=== PATIENT | female | born 1955 | race Caucasian/White ===

== ENCOUNTER → 2017-03-30 | Outpatient (CLI) | payer MEDICARE, BC ==
--- NOTE | 2017-03-30 17:42 | CT ---
EXAMINATION TYPE: CT abdomen pelvis wo con DATE OF EXAM: 03/30/2017 COMPARISON: NONE HISTORY: Hematuria CT DLP: 2383.3 mGycm Automated exposure control for dose reduction was used. TECHNIQUE: Helical acquisition of images was performed from the lung bases through the pelvis. FINDINGS: Lung bases are clear. There is no pleural effusion. Liver shows no focal defect. Bile ducts are not dilated. There are clips from cholecystectomy. Spleen and pancreas appear normal. There is no adrenal mass. Kidneys have normal size and contour. There is no hydronephrosis. There is no retroperitoneal adenopathy. There is no ascites. I see no intestinal wall thickening. There are no dilated loops. Abdominal aorta is atheromatous. There is metal artifact from bilateral hip prosthesi s. There is no free fluid. There is no sign of free air. There are spondylotic changes in the lumbar spine. IMPRESSION: NO EVIDENCE OF RENAL STONE OR OBSTRUCTION. NO SIGN OF ACUTE ABDOMEN AND PELVIS. NO SIGN OF APPENDICIT IS.
== END | disposition home or self-care (01) ==
LOC: RADCTMAIN 16:11
PROVIDERS: ATTEND Internal Medicine Geriatric Medicine
DX: R31.9 Hematuria, unspecified (principal)
CPT/HCPCS: 74176

== ENCOUNTER → 2017-04-27 | Outpatient (CLI) | payer MEDICARE, BC ==
--- NOTE | 2017-04-28 14:18 | MM ---
Reason for exam: screening (asymptomatic). Last mammogram was performed 1 year and 8 months ago. History: Patient is postmenopausal. Family history of premenopausal breast cancer in sister at age 42. Benign US left CoreBiopsy of the left breast, September 20, 2008. Benign US right guided VAD of the right breast, September 20, 2008. Took estrogen for 3 years beginning at age 46. Physical Findings: A clinical breast exam by your physician is recommended on an annual basis and results should be correlated with mammographic findings. MG 3D Screening Mammo W/Cad Bilateral CC and MLO view(s) were taken. Prior study comparison: August 28, 2015, bilateral MG 3d screening mammo w/cad. January 16, 2014, bilateral MG diagnostic mammo w CAD NAGI. The breast tissue is almost entirely fat. Previous mammotome biopsy in the left breast. No significant changes when compared with prior studies. ASSESSMENT: Negative, BI-RAD 1 RECOMMENDATION: Routine screening mammogram of both breasts in 1 year.
== END | disposition home or self-care (01) ==
LOC: RADMAMWWP 16:09
PROVIDERS: ATTEND Internal Medicine Geriatric Medicine
DX: Z12.31 Encounter for screening mammogram for malignant neoplasm of breast (principal)
CPT/HCPCS: 77063; 77067

== ENCOUNTER → 2017-07-15 | Outpatient (CLI) | payer MEDICARE, BC ==
--- NOTE | 2017-07-15 13:24 | CT ---
CT CHEST FOR PULMONARY EMBOLISM. EXAMINATION TYPE: CT angio chest DATE OF EXAM: 07/15/2017 INDICATION: Shortness of breath CT DLP: 1125.2 mGycm, Automated exposure control for dose reduction was used. CONTRAST: Patient injected with 80 mL of Isovue 370. COMPARISON: NONE TECHNIQUE: CT of the chest is performed on a spiral scan at 2 mm thick sections. Study is performed with intravenous contrast timed for evaluation for pulmonary embolism. This will limit additional po rtions of the evaluation. 3-D MIP images reconstructed by the technologist are reviewed on the compu ter in the coronal and sagittal planes. FINDINGS: No persistent filling defects are evident to suggest an acute pulmonary embolism. No mediastinal or hilar adenopathy enlarged by CT criteria is evident. The ascending aorta diameter at the level of the main pulmonary artery is 3.3 cm. The main pulmonary artery diameter at the bifur cation is 2.4 cm. There is a calcified granuloma in the posterior right lung base adjacent to the diaphragm. Limited CT section through the upper abdomen are unremarkable. IMPRESSIONS: 1. No acute pulmonary embolism.
== END | disposition home or self-care (01) ==
LOC: RADCTMAIN 11:24
PROVIDERS: ATTEND Internal Medicine Hematology & Oncology
DX: R06.02 Shortness of breath (principal)
CPT/HCPCS: 82565; 84520; 71275; Q9967

== ENCOUNTER 2017-08-07 18:22 | Inpatient (IN) | payer MEDICARE, BC ==
[2017-08-07] MEDS ORDERED: SODIUM CHLORIDE 0.9% 500 ML IV STA ×2 (18:43→20:28)
--- NOTE | 2017-08-07 18:51 | ED ---
General Adult HPI - General Chief complaint: Shortness of Breath Stated complaint: SOB Time Seen by Provider: 08/07/17 18:25 Source: patient, EMS, RN notes reviewed, old records reviewed Mode of arrival: EMS Limitations: no limitations - History of Present Illness Initial comments: 62-year-old female presenting with worsening dyspnea. Patient has history of bladder cancer, she is currently on chemotherapy, most recent treatment was 3 days prior. Her symptoms have been progressive over the past one month. She did receive an outpatient computed tomography scan which was negative for pulmonary embolism. Symptoms have continued to worsen, they were quite severe today. Patient reports exertional dyspnea, palpitations and tachycardia. She also reports near syncopal episode. Denies significant cough or fever. She has had some chest tightness, which is nonradiating, substernal. No abdominal pain nausea or vomiting. - Related Data Home Medications Medication Instructions Recorded Confirmed Amitriptyline HCl [Elavil] 100 mg PO HS 07/17/15 07/17/15 Aspirin EC [Ecotrin] 325 mg PO DAILY 07/17/15 07/17/15 Atorvastatin Calcium [Lipitor] 40 mg PO HS 07/17/15 07/17/15 Cyclobenzaprine [Flexeril] 10 mg PO TID 07/17/15 07/17/15 Diazepam [Valium] 10 mg PO HS 07/17/15 07/17/15 Ibuprofen [Advil] 600 mg PO HS 07/17/15 07/17/15 Insulin Glargine [Lantus] 25 unit SQ HS 07/17/15 07/17/15 Liraglutide [Victoza 3-Vaibhav] 1.8 mg SQ DAILY 07/17/15 07/17/15 Allergies Allergy/AdvReac Type Severity Reaction Status Date / Time adhesive tape Allergy Rash/Hives Verified 07/15/17 11:45 Review of Systems ROS Statement: Those systems with pertinent positive or pertinent negative responses have been documented in the HPI. ROS Other: All systems not noted in ROS Statement are negative. Past Medical History Past Medical History: Cancer, Chest Pain / Angina, CVA/TIA, Diabetes Mellitus, Deep Vein Thrombosis (DVT), Hyperlipidemia, Thyroid Disorder Additional Past Medical History / Comment(s): BACK PAIN, Bladder Cancer Stage II History of Any Multi-Drug Resistant Organisms: MRSA Date of last positivie culture/infection: 2009 MDRO Source:: BACK Additional Past Surgical History / Comment(s): BACK SURGERY, THYROID SURGERY, NAGI HIP SURGERY, BOWEL SURGERY WITH COLOSTOMY AND REVERSAL Past Psychological History: No Psychological Hx Reported Smoking Status: Former smoker Past Alcohol Use History: None Reported Past Drug Use History: None Reported General Exam Limitations: no limitations General appearance: alert, in no apparent distress Head exam: Present: atraumatic, normocephalic Eye exam: Present: normal appearance, PERRL, EOMI ENT exam: Present: normal exam Neck exam: Present: normal inspection. Absent: tenderness, meningismus Respiratory exam: Present: normal lung sounds bilaterally. Absent: respiratory distress, rhonchi Cardiovascular Exam: Present: normal rhythm, tachycardia GI/Abdominal exam: Present: soft. Absent: distended, tenderness, guarding Extremities exam: Present: normal inspection, normal capillary refill. Absent: pedal edema, calf tenderness Neurological exam: Present: alert, oriented X3, CN II-XII intact. Absent: motor sensory deficit Psychiatric exam: Present: normal affect, normal mood Skin exam: Present: warm, dry, intact. Absent: cyanosis, diaphoretic Course Vital Signs 08/07/17 08/07/17 08/07/17 18:24 19:03 20:27 Temperature 98.2 F 98.1 F Pulse Rate 130 H 117 H 114 H Respiratory 25 H 18 20 Rate Blood Pressure 141/64 120/59 89/51 O2 Sat by Pulse 93 L 98 98 Oximetry 08/07/17 08/07/17 20:47 21:26 Temperature Pulse Rate 110 H 100 Respiratory 16 20 Rate Blood Pressure 102/53 103/69 O2 Sat by Pulse 99 98 Oximetry EKG Findings - EKG Comments: EKG Findings:: EKG: Sinus tachycardia, rate of 128, MD interval 144, QRS duration 82, QTC 452, no ST segment elevation or depression. Medical Decision Making - Medical Decision Making 62-year-old female currently on treatment for bladder cancer presenting with one month of worsening dyspnea. Patient's symptoms have significantly worsened over the past 24 hours. Shortness of breath this. Abdominal exertional. She also reports palpitations and tachycardia. EKG shows sinus tachycardia rate of 128. Chest x-rays obtained, this is negative for focal pneumonia or pneumothorax, there is some peribronchial cuffing consistent with bronchitis. Laboratory studies reveal significantly elevated white blood cell count have 40 , this may be related to recent dose of Neulasta. Hemoglobin is 8.1 which is down from previous periods symptoms may be related to anemia. Lactic acid 4.1, this is consistent with physical exam findings including tachycardia and signs of dehydration. She does receive IV hydration emergency department. She has worsening kidney function with creatinine 1.4. Hypomagnesemia at 1.0 which is replaced. Patient is currently on Lovenox for DVT, given her worsening kidney function, CT angiography is not obtained for PE, also patient did have CT angiography within the past month which was negative for PE. She will be continued on Lovenox and bilateral lower extremity ultrasound will be obtained for DVT. Patient's dyspnea is likely multifactorial, degree of reactive airway disease, and anemia. Patient will be admitted for further evaluation and treatment. Echo will be obtained, bilateral lower extremity ultrasound will be obtained, oncology and pulmonology placed on consult. - Lab Data Result diagrams: 08/07/17 18:33 08/07/17 18:33 Lab Results 08/07/17 08/07/17 08/07/17 Range/Units 18:33 18:33 18:33 WBC 40.8 H* (3.8-10.6) k/uL RBC 2.52 L (3.80-5.40) m/uL Hgb 8.1 L (11.4-16.0) gm/dL Hct 24.2 L (34.0-46.0) % MCV 96.0 (80.0-100.0) fL MCH 32.1 (25.0-35.0) pg MCHC 33.5 (31.0-37.0) g/dL RDW 15.6 H (11.5-15.5) % Plt Count 52 L (150-450) k/uL Neutrophils % (Manual) 92 % Band Neutrophils % 2 % Lymphocytes % (Manual) 6 % Monocytes % (Manual) 1 % Neutrophils # (Manual) 38.30 H (1.3-7.7) k/uL Lymphocytes # (Manual) 2.45 (1.0-4.8) k/uL Monocytes # (Manual) 0.41 (0-1.0) k/uL Nucleated RBCs 0 (0-0) /100 WBC Manual Slide Review Performed RBC Morphology Normal PT (9.0-12.0) sec INR (<1.2) APTT (22.0-30.0) sec Sodium 136 L (137-145) mmol/L Potassium 4.7 (3.5-5.1) mmol/L Chloride 102 (98-107) mmol/L Carbon Dioxide 20 L (22-30) mmol/L Anion Gap 14 mmol/L BUN 33 H (7-17) mg/dL Creatinine 1.40 H (0.52-1.04) mg/dL Est GFR (CKD-EPI)AfAm 46 (>60 ml/min/1.73 sqM) Est GFR (CKD-EPI)NonAf 40 (>60 ml/min/1.73 sqM) Glucose 273 H (74-99) mg/dL Plasma Lactic Acid Fabian (0.7-2.0) mmol/L Calcium 8.1 L (8.4-10.2) mg/dL Magnesium 1.0 L* (1.6-2.3) mg/dL Total Bilirubin 0.3 (0.2-1.3) mg/dL AST 22 (14-36) U/L ALT 37 (9-52) U/L Alkaline Phosphatase 130 H (38-126) U/L Total Creatine Kinase 61 (30-135) U/L CK-MB (CK-2) 0.8 (0.0-2.4) ng/mL CK-MB (CK-2) Rel Index 1.3 Troponin I 0.032 (0.000-0.034) ng/mL NT-Pro-B Natriuret Pep pg/mL Total Protein 5.9 L (6.3-8.2) g/dL Albumin 3.3 L (3.5-5.0) g/dL 08/07/17 08/07/17 08/07/17 Range/Units 18:33 18:33 18:33 WBC (3.8-10.6) k/uL RBC (3.80-5.40) m/uL Hgb (11.4-16.0) gm/dL Hct (34.0-46.0) % MCV (80.0-100.0) fL MCH (25.0-35.0) pg MCHC (31.0-37.0) g/dL RDW (11.5-15.5) % Plt Count (150-450) k/uL Neutrophils % (Manual) % Band Neutrophils % % Lymphocytes % (Manual) % Monocytes % (Manual) % Neutrophils # (Manual) (1.3-7.7) k/uL Lymphocytes # (Manual) (1.0-4.8) k/uL Monocytes # (Manual) (0-1.0) k/uL Nucleated RBCs (0-0) /100 WBC Manual Slide Review RBC Morphology PT 10.2 (9.0-12.0) sec INR 1.0 (<1.2) APTT 27.6 (22.0-30.0) sec Sodium (137-145) mmol/L Potassium (3.5-5.1) mmol/L Chloride (98-107) mmol/L Carbon Dioxide (22-30) mmol/L Anion Gap mmol/L BUN (7-17) mg/dL Creatinine (0.52-1.04) mg/dL Est GFR (CKD-EPI)AfAm (>60 ml/min/1.73 sqM) Est GFR (CKD-EPI)NonAf (>60 ml/min/1.73 sqM) Glucose (74-99) mg/dL Plasma Lactic Acid Fabian 4.2 H* (0.7-2.0) mmol/L Calcium (8.4-10.2) mg/dL Magnesium (1.6-2.3) mg/dL Total Bilirubin (0.2-1.3) mg/dL AST (14-36) U/L ALT (9-52) U/L Alkaline Phosphatase (38-126) U/L Total Creatine Kinase (30-135) U/L CK-MB (CK-2) (0.0-2.4) ng/mL CK-MB (CK-2) Rel Index Troponin I (0.000-0.034) ng/mL NT-Pro-B Natriuret Pep 96 pg/mL Total Protein (6.3-8.2) g/dL Albumin (3.5-5.0) g/dL Disposition Clinical Impression: Dyspnea, Hypomagnesemia, Dehydration, Lactic acidosis Disposition: ADMITTED IP TO THIS [facility] Condition: Serious Is patient prescribed a controlled substance at d/c from ED?: No Referrals: Deniz Lopez MD [Primary Care Provider] - 1-2 days Decision to Admit Reason: Admit from EC Decision Date: 08/07/17 Decision Time: 21:30
[2017-08-07 19:07] LABS: HCT 24.2 % (34.0-46.0); HGB 8.1 gm/dL (11.4-16.0); MCH 32.1 pg (25.0-35.0); MCHC 33.5 g/dL (31.0-37.0); Mean Platelet Volume 8.3; RBC 2.52 m/uL (3.80-5.40); RDW 15.6 % (11.5-15.5)
[2017-08-07 19:14] LABS: Platelet Count 52 k/uL (150-450); WBC 40.8 k/uL (3.8-10.6)
[2017-08-07 19:22] LABS: Band Neutrophils % 2 %; Lymphocytes # (M) 2.45 k/uL (1.0-4.8); Monocytes # (M) 0.41 k/uL (0-1.0); Neutrophils % (M) 92 %; Nucleated Red Blood Cells 0 /100 WBC (0-0); Total Cells Counted 200
[2017-08-07 19:32] LABS: Creatine Kinase MB 0.8 ng/mL (0.0-2.4); Troponin I 0.032 ng/mL (0.000-0.034)
[2017-08-07 19:33] LABS: Partial Thromboplastin Time 27.6 sec (22.0-30.0); Prothrombin Time 10.2 sec (9.0-12.0)
[2017-08-07] MEDS ORDERED: SODIUM CHLORIDE 0.9% 1,000 ML IV ONE (19:33)
[2017-08-07 19:42] LABS: Albumin 3.3 g/dL (3.5-5.0); Calcium 8.1 mg/dL (8.4-10.2); Potassium 4.7 mmol/L (3.5-5.1); Total Bilirubin 0.3 mg/dL (0.2-1.3); Total Protein 5.9 g/dL (6.3-8.2)
--- NOTE | 2017-08-07 20:06 | XR ---
EXAMINATION TYPE: XR chest 2V DATE OF EXAM: 08/07/2017 COMPARISON: 11/07/2014 HISTORY: 62-year-old female difficulty breathing TECHNIQUE: AP and lateral views FINDINGS: Heart upper limits of normal in size. Mild peribronchial cuffing centrally. Mild interstitial promine nce is similar. Aorta and pulmonary vasculature within normal limits. Right anterior chest wall injec tion port with catheter tip at the upper to mid SVC level. No consolidation or pleural effusion. IMPRESSION: Peribronchial cuffing could reflect bronchitis or asthma. Otherwise, no acute process seen.
[2017-08-07] MEDS: MAGNESIUM SULFATE-D5W PMX 1 GM in DEXTROSE/WATER 1 100ML.BAG IVPB SCH ×2 (20:11→21:24)
[2017-08-07] MEDS ORDERED: NALOXONE 0.4 MG/ML 1 ML VIAL IV PRN (22:06)
--- NOTE | 2017-08-07 22:24 | US ---
EXAMINATION TYPE: US venous doppler duplex LE BI DATE OF EXAM: 08/07/2017 8:43 PM COMPARISON: CLINICAL HISTORY: Pain. Patient states having a DVT behind right knee in May, imaged at [place]. On blood thinners. SIDE PERFORMED: Bilateral TECHNIQUE: The lower extremity deep venous system is examined utilizing real time linear array sonog jessica with graded compression, doppler sonography and color-flow sonography. VESSELS IMAGED: External Iliac Vein (EIV) Common Femoral Vein Deep Femoral Vein Greater Saphenous Vein * Femoral Vein Popliteal Vein Small Saphenous Vein * Proximal Calf Veins (* superficial vessels) Suboptimal visualization due to patient body habitus Right Leg: Negative for acute DVT Left Leg: Negative for acute DVT IMPRESSION: Exam shows no evidence of deep venous thrombosis.
[2017-08-07] MEDS ORDERED: CYCLOBENZAPRINE 10 MG TAB PO STA (22:36)
[2017-08-07] MEDS: ONDANSETRON 4 MG/2 ML VIAL IVP PRN (22:41)
[2017-08-07 23:09] LABS: Appearance,Urine Cloudy (Clear); Bilirubin,Urine Negative (Negative); Blood,Urine Small (Negative); Color,Urine Yellow; Glucose,Urine (UA) 2+ (Negative); Ketones,Urine Negative (Negative); Leukocyte Esterase,Urine Large (Negative); Nitrite,Urine Negative (Negative); Protein,Urine 1+ (Negative); Specific Gravity,Urine 1.016 (1.001-1.035); Urobilinogen,Urine <2.0 mg/dL (<2.0)
[2017-08-07 23:10] LABS: Bacteria,Urine Rare /hpf; Budding Yeast,Urine Many /hpf; Mucus,Urine Rare /hpf; RBC,Urine 11 /hpf (0-5); Squamous Epithelial Cell,Urine 1 /hpf (0-4); WBC,Urine 40 /hpf (0-5)
[2017-08-08] MEDS ORDERED: CYCLOBENZAPRINE 10 MG TAB PO SCH
[2017-08-08] MEDS: ENOXAPARIN 150 MG/ML SYRINGE SQ SCH ×2 (00:31→12:32)
[2017-08-08] MEDS: AMITRIPTYLINE HCL 50 MG TAB PO SCH ×2 (00:32→20:57)
[2017-08-08] MEDS: ATORVASTATIN 40 MG TAB PO SCH ×2 (00:32→20:57)
[2017-08-08] MEDS: DIAZEPAM 5 MG TAB PO SCH ×2 (00:32→22:23)
[2017-08-08] MEDS: INSULIN DETEMIR 100 UNIT/ML 10 ML VIAL SQ SCH ×2 (00:32→20:59)
[2017-08-08 00:53] LABS: Glucose,Whole Blood 178 mg/dL (75-99)
[2017-08-08] MEDS: HYDROmorphone 0.5 MG/0.5 ML SYRINGE IVP PRN ×2 (05:45→14:36)
[2017-08-08] MEDS: ONDANSETRON 4 MG/2 ML VIAL IVP PRN (05:51)
[2017-08-08 06:55] LABS: Glucose,Whole Blood 116 mg/dL (75-99)
[2017-08-08 07:42] LABS: MCH 31.4 pg (25.0-35.0); MCHC 32.4 g/dL (31.0-37.0); MCV 96.7 fL (80.0-100.0); Macrocytosis Slight; RBC 2.05 m/uL (3.80-5.40); RDW 15.9 % (11.5-15.5)
[2017-08-08 07:51] LABS: HGB 6.4 gm/dL (11.4-16.0); WBC 30.1 k/uL (3.8-10.6)
[2017-08-08 07:52] LABS: HCT 19.8 % (34.0-46.0); Platelet Count 38 k/uL (150-450)
[2017-08-08] MEDS: ALBUTEROL NEBULIZED 2.5 MG/3 ML INHALATION SCH ×4 (08:10→19:30)
[2017-08-08 08:12] LABS: Albumin 2.6 g/dL (3.5-5.0); Calcium 7.5 mg/dL (8.4-10.2); Magnesium 1.4 mg/dL (1.6-2.3); Potassium 4.7 mmol/L (3.5-5.1); Total Bilirubin 0.2 mg/dL (0.2-1.3)
[2017-08-08 08:17] LABS: Band Neutrophils % 1 %; Lymphocytes # (M) 3.01 k/uL (1.0-4.8); Neutrophils % (M) 86 %; Nucleated Red Blood Cells 0 /100 WBC (0-0); Polychromasia Present; Total Cells Counted 100; Toxic Granulation Present
[2017-08-08] MEDS ORDERED: ASPIRIN 325 MG TAB PO SCH (09:00)
[2017-08-08] MEDS: CYCLOBENZAPRINE 10 MG TAB PO SCH ×3 (09:25→22:23)
--- NOTE | 2017-08-08 10:10 | CONS ---
CONSULTATION Sharyn Rodríguez is a 62-year-old female who has a history of bladder cancer and chemotherapy. The most recent treatment 3 days prior. She has been complaining of increasing dyspnea for the last [address] of the chest as an outpatient and was negative for pulmonary embolism. Shortness of breath became worse and associated with palpitations and she reports being very dizzy and lightheaded. REVIEW OF SYSTEMS: No fever, chills, rigors or rigors. No cough or expectoration. No nausea, vomiting, or diarrhea. No hematuria or dysuria. No strokes, seizures. She did complain of some tightness in the chest. MEDICATIONS: Medications at home include amitriptyline, aspirin, atorvastatin, Flexeril, Valium, Lantus and Victoza. PAST MEDICAL HISTORY: Bladder cancer on chemotherapy, diabetes type 2, history of DVT. SOCIAL HISTORY: She was a smoker in the past. PHYSICAL EXAMINATION: On examination, she is lying flat in bed. She looks comfortable. There is no respiratory distress. Heart sounds S1, S2 are normal. No murmurs or gallops. No rub. Abdomen is soft. Vitals were evaluated. She is afebrile. Respiratory rate is about 18, blood pressure 100/62 mmHg. The ECG shows sinus tachycardia at 128 beats per minute. LABS: Labs are reviewed. The hemoglobin was 6.4. Magnesium was 1.0. NT proBNP is 96. IMPRESSION: Sinus tachycardia, likely post chemotherapy and related to dehydration. BUN is 33, creatinine is 1.4. SUGGEST: Management of anemia and dehydration post chemotherapy. This would address her sinus tachycardia. She is receiving 75 mL of fluid per hour at this time of normal saline. 2D echo and Doppler study to assess the pericardium. MMODL / IJN: [id number] /
[2017-08-08] MEDS ORDERED: DIAZEPAM 2 MG TAB PO PRN (10:42)
[2017-08-08 11:14] LABS: Glucose,Whole Blood 158 mg/dL (75-99)
--- NOTE | 2017-08-08 11:45 | P.HPIM ---
History of Present Illness H&P Date: 08/08/17 Chief Complaint: severe dyspnea This is a 62-year-old female one of Dr. Lopez with a previous medical history significant for stage II bladder cancer that was diagnosed back in May 2017 after she had a cystoscopy and ended up having tumor removal with Dr. Alvarado and she was sent to [facility] that time she was started on chemotherapy in the form of Gemzar and the cisplatin back then and the patient did have her last chemotherapy about 3 days ago and she did receive her Neulasta injection as well, patient has been having significant shortness of breath over the last the 2 weeks apparently she was seen by Dr. Lopez in the office last Wednesday and she was sent to see Dr. Andrews from cardiology for evaluation of her heart and she was checked okay and she was supposed to see tomorrow morning in the office for pulmonary evaluation, however the patient became quite short of breath yesterday and she ended up into a panic situation when she was extremity tachycardic and she was dyspneic ended up coming to the ER at [facility] with her daughter she was seen and evaluated in the ER and the patient to the was found to have a leukocytosis with a white count of 40, 000 along with anemia as well as thrombus cytopenia due to recent chemotherapy, and the patient was admitted to the hospital for evaluation she was a bit dehydrated she was given IV fluid in the form of normal saline and she was started on her medication hematology oncology consultation was obtained. Review of Systems Constitutional: Denies anorexia, Denies chronic headaches, Denies fever, Denies lethargy, Denies weakness, Denies weight gain, Denies weight loss Eyes: denies blurred vision Ears: deny: decreased hearing Ears, nose, mouth and throat: Denies dysphagia, Denies neck lump, Denies swelling in throat, Denies sore throat Cardiovascular: Reports decreased exercise tolerance, Reports dyspnea on exertion, Reports shortness of breath, Denies chest pain, Denies high blood pressure, Denies phlebitis, Denies rapid heart beat, Denies syncope Respiratory: Reports dyspnea, Reports sleep apnea, Denies congestion, Denies cough, Denies cough with sputum, Denies home oxygen, Denies snoring, Denies wheezing Gastrointestinal: Reports nausea, Denies abdominal pain, Denies bloating, Denies BRBPR, Denies heartburn, Denies melena, Denies vomiting Genitourinary: Denies dysuria Menstruation: Reports post hysterectomy, Reports postmenopausal Musculoskeletal: Denies myalgias Musculoskeletal: absent: ankle pain, ankle stiffness, ankle swelling, elbow pain , elbow stiffness, elbow swelling, foot pain, foot stiffness, foot swelling, hand pain, hand stiffness, hand swelling, hip pain, hip stiffness, hip swelling , knee pain, knee stiffness, knee swelling, shoulder pain, shoulder stiffness, shoulder swelling, wrist pain, wrist stiffness, wrist swelling Integumentary: Denies pruritus, Denies rash Neurological: Reports numbness, Denies weakness Psychiatric: Reports anxiety, Reports depression Endocrine: Denies fatigue, Denies weight change Past Medical History Past Medical History: Cancer, Chest Pain / Angina, CVA/TIA, Diabetes Mellitus, Deep Vein Thrombosis (DVT), GERD/Reflux, Hyperlipidemia, Osteoarthritis (OA), Thyroid Disorder Additional Past Medical History / Comment(s): BACK PAIN, Bladder Cancer Stage II History of Any Multi-Drug Resistant Organisms: MRSA Date of last positivie culture/infection: 2009 MDRO Source:: BACK Past Surgical History: Appendectomy, Bladder Surgery, Cholecystectomy, Hysterectomy, Joint Replacement (bilateral hip replacement) Additional Past Surgical History / Comment(s): BACK SURGERY, THYROID SURGERY, NAGI HIP SURGERY, BOWEL SURGERY WITH COLOSTOMY AND REVERSAL, history of perforated bowel status post expiratory laparotomy with partial colectomy and colostomy placement and reversal, bilateral cataract surgery, total abdominal instructed him bilateral sopping go for nephrectomy, bilateral total hip arthroplasty, thyroidectomy, cholecystectomy, Past Anesthesia/Blood Transfusion Reactions: No Reported Reaction Past Psychological History: No Psychological Hx Reported Smoking Status: Former smoker (patient used to smoke about a pack every day she smoked since she was 16 up till 2007 that she quit.) Past Alcohol Use History: None Reported Past Drug Use History: None Reported - Past Family History Mother Family Medical History: Coronary Artery Disease (CAD) (mother at age of 80 from diabetes and heart disease.), Diabetes Mellitus Additional Family Medical History / Comment(s): Heart issues Father Family Medical History: Diabetes Mellitus, Myocardial Infarction (MS) (father at age 70 from massive MS.) Additional Family Medical History / Comment(s): of heart disease Brother(s) Family Medical History: Coronary Artery Disease (CAD) (patient has 4 brothers 2 of them had CABG.) Sister(s) Family Medical History: Cancer (patient has 2 sisters one of them with breast cancer.) Son(s) Family Medical History: No Reported History (patient has 3 sons no major Problems) Daughter(s) Family Medical History: No Reported History (one daughter no major medical problems) Medications and Allergies Home Medications Medication Instructions Recorded Confirmed Type Amitriptyline HCl [Elavil] 100 mg PO HS 07/17/15 08/08/17 History Atorvastatin Calcium [Lipitor] 10 mg PO HS 07/17/15 08/08/17 History Cyclobenzaprine [Flexeril] 10 mg PO TID 07/17/15 08/08/17 History Diazepam [Valium] 10 mg PO HS 07/17/15 08/08/17 History Insulin Glargine [Lantus] 60 unit SQ HS 07/17/15 08/08/17 History Liraglutide [Victoza 3-Vaibhav] 1.8 mg SQ DAILY 07/17/15 08/08/17 History Diazepam [Valium] 2 mg PO TID PRN 08/07/17 08/08/17 History Enoxaparin [Lovenox] 150 mg SQ Q12H 08/07/17 08/08/17 History INSULIN LISPRO (humaLOG) [humaLOG] 10 units SQ TID 08/07/17 08/08/17 History Ondansetron HCl [Zofran] 1 tab PO Q6HR 08/07/17 08/08/17 History Prochlorperazine [Compazine] 1 tab PO Q6H 08/07/17 08/08/17 History Gabapentin [Neurontin] 400 mg PO TID 08/08/17 08/08/17 History Allergies Allergy/AdvReac Type Severity Reaction Status Date / Time adhesive tape Allergy Rash/Hives Verified 07/15/17 11:45 Physical Exam Vitals: Vital Signs Temp Pulse Pulse Pulse Resp BP BP 08/08/17 11:21 95 08/08/17 11:12 92 08/08/17 08:32 92 08/08/17 08:12 89 08/08/17 07:39 97.7 F 92 20 100/62 08/07/17 23:48 97.0 F L 120 H 16 140/60 08/07/17 22:15 98 F 104 H 20 104/56 08/07/17 21:26 100 20 103/69 08/07/17 20:47 110 H 16 102/53 08/07/17 20:27 98.1 F 114 H 20 89/51 08/07/17 19:03 117 H 18 120/59 08/07/17 18:24 98.2 F 130 H 25 H 141/64 Pulse Ox 08/08/17 11:21 08/08/17 11:12 08/08/17 08:32 08/08/17 08:12 98 08/08/17 07:39 100 08/07/17 23:48 98 08/07/17 22:15 96 08/07/17 21:26 98 08/07/17 20:47 99 08/07/17 20:27 98 08/07/17 19:03 98 08/07/17 18:24 93 L Intake and Output 08/07/17 08/08/17 08/08/17 22:59 06:59 14:59 Intake Total 1250 118 Balance 1250 118 Intake: Intake, IV Titration 750 Amount Sodium Chloride 0.9% 1, 750 000 ml @ 75 mls/hr IV . [id number] EDGAR Rx#:[id number] Oral 500 118 Other: # Voids 1 # Bowel Movements 1 Weight 130.635 kg - Constitutional General appearance: mild distress, obese - EENT Eyes: anicteric sclerae, EOMI, PERRLA, no ptosis, no scleral icterus, normal appearance ENT: hearing grossly normal, NA/AT, normal oropharynx, no thrush Ears: bilateral: normal - Neck Neck: no lymphadenopathy, normal ROM, no rigidity, no stridor Carotids: bilateral: upstroke delayed - Respiratory Respiratory: bilateral: diminished, negative: dullness, rales, rhonchi, wheezing , prolonged expiration - Cardiovascular Rhythm: regular Heart sounds: normal: S1, S2 Abnormal Heart Sounds: systolic murmur, no S3 Gallop - Gastrointestinal General gastrointestinal: normal bowel sounds, soft, no splenomegaly, no tenderness, no umbilical hernia, no ventral hernia - Integumentary Integumentary: normal, normal turgor - Neurologic Neurologic: CNII-XII intact - Musculoskeletal Musculoskeletal: generalized weakness, strength equal bilaterally - Psychiatric Psychiatric: A&O x's 3, appropriate affect, intact judgment & insight Results CBC & Chem 7: 08/08/17 07:18 08/08/17 07:18 Labs: Abnormal Lab Results - Last 24 Hours (Table) 08/07/17 08/07/17 08/07/17 Range/Units 18:33 18:33 18:33 WBC 40.8 H* (3.8-10.6) k/uL RBC 2.52 L (3.80-5.40) m/uL Hgb 8.1 L (11.4-16.0) gm/dL Hct 24.2 L (34.0-46.0) % RDW 15.6 H (11.5-15.5) % Plt Count 52 L (150-450) k/uL Neutrophils # (Manual) 38.30 H (1.3-7.7) k/uL Sodium 136 L (137-145) mmol/L Carbon Dioxide 20 L (22-30) mmol/L BUN 33 H (7-17) mg/dL Creatinine 1.40 H (0.52-1.04) mg/dL Glucose 273 H (74-99) mg/dL POC Glucose (mg/dL) (75-99) mg/dL Plasma Lactic Acid Fabian 4.2 H* (0.7-2.0) mmol/L Calcium 8.1 L (8.4-10.2) mg/dL Magnesium 1.0 L* (1.6-2.3) mg/dL Alkaline Phosphatase 130 H (38-126) U/L Total Protein 5.9 L (6.3-8.2) g/dL Albumin 3.3 L (3.5-5.0) g/dL Urine Appearance (Clear) Urine Protein (Negative) Urine Glucose (UA) (Negative) Urine Blood (Negative) Ur Leukocyte Esterase (Negative) Urine RBC (0-5) /hpf Urine WBC (0-5) /hpf Urine Bacteria (None) /hpf Urine Mucus (None) /hpf Urine Yeast (Budding) (None) /hpf Crossmatch 08/07/17 08/08/17 08/08/17 Range/Units 22:44 00:29 06:52 WBC (3.8-10.6) k/uL RBC (3.80-5.40) m/uL Hgb (11.4-16.0) gm/dL Hct (34.0-46.0) % RDW (11.5-15.5) % Plt Count (150-450) k/uL Neutrophils # (Manual) (1.3-7.7) k/uL Sodium (137-145) mmol/L Carbon Dioxide (22-30) mmol/L BUN (7-17) mg/dL Creatinine (0.52-1.04) mg/dL Glucose (74-99) mg/dL POC Glucose (mg/dL) 178 H 116 H (75-99) mg/dL Plasma Lactic Acid Fabian (0.7-2.0) mmol/L Calcium (8.4-10.2) mg/dL Magnesium (1.6-2.3) mg/dL Alkaline Phosphatase (38-126) U/L Total Protein (6.3-8.2) g/dL Albumin (3.5-5.0) g/dL Urine Appearance Cloudy H (Clear) Urine Protein 1+ H (Negative) Urine Glucose (UA) 2+ H (Negative) Urine Blood Small H (Negative) Ur Leukocyte Esterase Large H (Negative) Urine RBC 11 H (0-5) /hpf Urine WBC 40 H (0-5) /hpf Urine Bacteria Rare H (None) /hpf Urine Mucus Rare H (None) /hpf Urine Yeast (Budding) Many H (None) /hpf Crossmatch 08/08/17 08/08/17 08/08/17 Range/Units 07:18 07:18 07:18 WBC 30.1 H* (3.8-10.6) k/uL RBC 2.05 L (3.80-5.40) m/uL Hgb 6.4 L* D (11.4-16.0) gm/dL Hct 19.8 L* (34.0-46.0) % RDW 15.9 H (11.5-15.5) % Plt Count 38 L* (150-450) k/uL Neutrophils # (Manual) 26.10 H (1.3-7.7) k/uL Sodium (137-145) mmol/L Carbon Dioxide (22-30) mmol/L BUN 29 H (7-17) mg/dL Creatinine 1.20 H (0.52-1.04) mg/dL Glucose 111 H (74-99) mg/dL POC Glucose (mg/dL) (75-99) mg/dL Plasma Lactic Acid Fabian (0.7-2.0) mmol/L Calcium 7.5 L (8.4-10.2) mg/dL Magnesium 1.4 L (1.6-2.3) mg/dL Alkaline Phosphatase (38-126) U/L Total Protein 5.0 L (6.3-8.2) g/dL Albumin 2.6 L (3.5-5.0) g/dL Urine Appearance (Clear) Urine Protein (Negative) Urine Glucose (UA) (Negative) Urine Blood (Negative) Ur Leukocyte Esterase (Negative) Urine RBC (0-5) /hpf Urine WBC (0-5) /hpf Urine Bacteria (None) /hpf Urine Mucus (None) /hpf Urine Yeast (Budding) (None) /hpf Crossmatch See Detail 08/08/17 Range/Units 11:13 WBC (3.8-10.6) k/uL RBC (3.80-5.40) m/uL Hgb (11.4-16.0) gm/dL Hct (34.0-46.0) % RDW (11.5-15.5) % Plt Count (150-450) k/uL Neutrophils # (Manual) (1.3-7.7) k/uL Sodium (137-145) mmol/L Carbon Dioxide (22-30) mmol/L BUN (7-17) mg/dL Creatinine (0.52-1.04) mg/dL Glucose (74-99) mg/dL POC Glucose (mg/dL) 158 H (75-99) mg/dL Plasma Lactic Acid Fabian (0.7-2.0) mmol/L Calcium (8.4-10.2) mg/dL Magnesium (1.6-2.3) mg/dL Alkaline Phosphatase (38-126) U/L Total Protein (6.3-8.2) g/dL Albumin (3.5-5.0) g/dL Urine Appearance (Clear) Urine Protein (Negative) Urine Glucose (UA) (Negative) Urine Blood (Negative) Ur Leukocyte Esterase (Negative) Urine RBC (0-5) /hpf Urine WBC (0-5) /hpf Urine Bacteria (None) /hpf Urine Mucus (None) /hpf Urine Yeast (Budding) (None) /hpf Crossmatch Thrombosis Risk Factor Assmnt - DVT/VTE Prophylaxis DVT/VTE Prophylaxis: Pharmacologic Prophylaxis ordered, Mechanical Prophylaxis ordered - Choose All That Apply Other Risk Factors: Yes Each Risk Factor Represents 2 Points: Age 61-74 years Thrombosis Risk Factor Assessment Total Risk Factor Score: 2 Thrombosis Risk Factor Assessment Level: Low Risk Assessment and Plan Assessment: Assessment and plan: 1. Dyspnea on exertion likely related to COPD and an element of anxiety, doubt any from embolic disease namely pulmonary and was about this time as the patient is on Lovenox 150 mg subcu venously every 12 hours, we will maintain the patient on that, pulmonary consultation, patient will need to have a pulmonary function tests as an outpatient, start the patient on DuoNeb 3 mL nebulization 4 times every day, oxygen support. 2. Leukocytosis likely related to the Neulasta. 3. Pancytopenia due to recent chemotherapy in the form of Gemzar and cisplatin. Chemotherapy precautions. Type and cross and transfuse 2 units of packed red blood cells. 4. Diabetes mellitus type 2. Continue patient on Levemir 25 units at bedtime along with Humalog 10 units before each meal and Victoza daily. BGM before each meal and at bedtime. 5. Hyperlipidemia. Continue patient on Lipitor 40 mg orally once every day. 6. DVT of the right lower extremity. Continue Lovenox until the end of her life. 7. History of TIA/CVA. Stable at this time. 8. Stage II bladder cancer and her the care of hematology oncology. Consult Dr. Dexter. 9. Spondylosis of the lumbar spine. Continue patient on gabapentin 400 mg orally 2 times every day as well as diazepam 2 mg 3 times every day as needed and to milligram at bedtime along with Flexeril 10 mg at bedtime. 10. Peripheral neuropathy. Continue gabapentin as ordered. 11. DVT prophylaxis. Currently on Lovenox 12. GI prophylaxis. Continue Protonix 40 mg orally once every day. 13. Admit to inpatient. 14. Estimated length of stay 2 midnights. 15. Patient is full code.
[2017-08-08] MEDS ORDERED: PROCHLORPERAZINE 10 MG TAB PO SCH (12:00)
[2017-08-08] MEDS: SODIUM CHLORIDE 0.9% 1,000 ML IV SCH ×3 (12:32→16:58)
[2017-08-08] MEDS: INSULIN ASPART 100 UNIT/ML 1 ML 10 ML VIAL SQ SCH ×2 (12:32→18:02)
[2017-08-08] MEDS: ONDANSETRON 4 MG TAB PO SCH ×2 (12:32→18:03)
[2017-08-08] MEDS ORDERED: FUROSEMIDE 10 MG/ML 4 ML VIAL IV STA (12:37)
[2017-08-08] MEDS ORDERED: IOPAMIDOL-300 CONTRAST 30 ML VIAL (ORAL USE) PO PRN ×2 (13:45→18:23)
--- NOTE | 2017-08-08 14:49 | CONS ---
CONSULTATION Sharyn Rodríguez is a 62-year-old female who presented to the ED on 08/07/2017 with increasing shortness of breath of about 1 month duration. It became worse for the day prior. She subsequently came in for further evaluation. She has a known history of bladder cancer and is undergoing chemotherapy. Her last chemotherapy was 4 days ago. She had been short of breath for about a month and had an outpatient CT scan of the chest at the end of June, which was negative for pulmonary embolus. She previously had a history of DVT on the right side and is on Lovenox. She denies any cough, fever, chills or rigors. Hemoglobin is only 8 and has gone down to the 6 range. She is due to receive 2 units of packed cells at this time. PAST MEDICAL HISTORY: Positive for diabetes mellitus type 2, history of DVT, history of bladder cancer. History of back surgery, thyroid surgery, bilateral hip surgery, bowel surgery with colostomy and subsequent reversal. History of angina. History of recent cardiac workup with an echo which apparently was normal for the patient. She was due for a stress test as she may need to undergo bladder surgery. SOCIAL HISTORY: The patient used to smoke in the past. Quit in 2007. She used to manage a store. FAMILY HISTORY: Noncontributory. MEDICATIONS: Prior to admission were amitriptyline, Ecotrin, atorvastatin, Flexeril, Valium, Advil, Lantus insulin, Victoza. ALLERGIC: ADHESIVE that causes rashes and hives. PHYSICAL EXAMINATION: Respiratory rate is 18, pulse rate of 90, temperature 97.7, blood pressure 105/54, O2 saturation is 98%. Her heart rate had been as high as 130. Her oxygen saturation was 93% on room air. HEENT reveals pallor. No jugular venous distention. Chest reveals decreased breath sounds at the bases. No clear wheeze or crackles. Cardiovascular system is S1, S2. ABDOMEN: Soft. There is 1+ pedal edema. [place]: [place] [address], hemoglobin of 6.4, platelet count of 38,000. Sodium 140, potassium 4.7, chloride 107, bicarb 25, BUN 29, creatinine 1.2. UA shows large leukocyte esterase, small amount of blood. Venous Doppler was negative for a DVT. Chest x-ray shows peribronchial cuffing. IMPRESSION: At this time: 1. Dyspnea, which is most likely secondary to anemia and increased metabolic requirements due to her recent chemotherapy. 2. Bladder cancer. 3. Anemia with thrombocytopenia related to chemotherapy. 4. Leukocytosis, most likely secondary to Neupogen. At this point in time, I agree with transfusing 2 units of packed cells. Keep her hemoglobin at least above 8 to optimize oxygen delivery. Give 40 mg of Lasix prior to the second unit of packed cells. Keep her on supplemental oxygen. Her prognosis at this time is fair. She was counseled regarding her condition and this approach. MMODL / IJN: [id number] /
--- NOTE | 2017-08-08 15:01 | CONS ---
CONSULTATION DATE OF SERVICE: August 08, 2017. REASON FOR CONSULTATION: Bladder cancer. CHIEF COMPLAINT: Short of breath. Sharyn is a pleasant 62 years old lady known to our practice. She initially presented with gross hematuria and she underwent cystoscopy by Dr. Escamilla on 05/11/2017 revealing tumor in the left anterolateral bladder wall. She underwent a TURBT, which revealed a high-grade papillary urothelial carcinoma with extensive involvement of muscularis propria. She had a CT scan of the abdomen and pelvis which was unremarkable. Subsequently, she was referred to Dr. Dailey and she had another repeat CT scan on 05/19/2017 at [facility], which revealed enlarged left para- aortic node measuring 1.9 cm and neoadjuvant chemotherapy was recommended. She was started on a combination of cisplatin and Gemzar. She had a 1st cycle at [place] and subsequently she saw Dr. Estrella and she had cycle 1 and cycle 3 through our office. The patient also did receive Neulasta shortly after her last cycle of chemotherapy which was done on 08/05/2017. However, the patient has become short of breath yesterday and she was tachycardic as well and she ended up coming to the emergency department at [facility]. She was evaluated in the emergency department. She was found to have leukocytosis with a white count up to 40 kg with significant anemia and she was also found to be somewhat dehydrated and she ended up being admitted to the hospital and blood transfusions ordered for her. The patient denies any fever or chills. She was extremely short of breath and tachycardic. No cough. No fever or chills. No dysphagia, nausea, or vomiting. Denies any headache, seizures, syncope. No melena, hematochezia, hematuria, hemoptysis, hematemesis or epistaxis. Appetite is fair and no weight loss. PAST MEDICAL HISTORY: In addition to what is stated above in regard to bladder cancer, she has a history of angina, TIA, diabetes mellitus, history of deep venous thrombosis, gastroesophageal reflux disease, hyperlipidemia, osteoarthritis, hypothyroidism. She had back surgery in the past, cholecystectomy, hysterectomy, cystoscopy, joint replacement of bilateral hip and thigh. She had cataract surgery. She had a colostomy and revision of her colostomy. She had a hysterectomy. The colostomy was related to bowel obstruction and she had a port placement. She has a history of DVT. FAMILY HISTORY: Her sister had breast cancer. She has a daughter with ovarian cancer. SOCIAL HISTORY: She used to smoke. She quit in 2007. She is an occasional alcohol drinker. No illicit drug use. She is a . REVIEW OF SYSTEMS: As stated above in history of present illness, otherwise negative. CURRENT MEDICATION: Include albuterol inhaler, Elavil 100 mg p.o. q.h.s., Lipitor 40 mg daily. Flexeril 10 mg t.i.d., Valium 10 mg q.h.s., Lovenox 150 mg q.12 hours, Neurontin 400 mg t.i.d., Dilaudid 0.5 mg IV every 4 hours as needed, NovoLog sliding scale, Levemir 25 units q.h.s., Zofran 4 mg IV every 8 hours as needed, Protonix 40 mg p.o. daily, Compazine 10 mg every 6 hours as needed, and she is on normal saline at 75 mL/h. ALLERGIES: He is allergic to ADHESIVE TAPE. PHYSICAL EXAMINATION: She is alert, oriented x3. She does not appear to be in acute distress. Well developed, well nourished. Her vital signs are temperature 97.4 afebrile, pulse 108, respiration 18, blood pressure 114/49. HEENT: Normocephalic, atraumatic. No obvious icterus. NECK: Supple. CHEST: Equal expansion bilaterally. Lungs are clear to auscultation and percussion. Heart is regular rhythm. Abdomen is soft. No obvious organomegaly or masses. Bowel sounds present. No ascites. Extremities reveal trace edema. Skin: A few bruises on upper extremities. Moving all extremities appropriately. No percussion tenderness detected over spine or sternum. LABORATORY DATA: Sodium 140, potassium 4.7, chloride 107, BUN is 29, creatinine 1.2. AST and ALT are within normal limits. Sodium within normal limits. WBC of 30.1, hemoglobin 6.4, hematocrit 19.9, platelets are 38. IMPRESSION: 1. Bladder carcinoma, currently on neoadjuvant therapy with diagnostic and therapeutic circumstances stated above. 2. Chemotherapy-induced myelosuppression with significant anemia and thrombocytopenia. 3. Leukocytosis is related to Neulasta injection, appears to be improving since the admission. 4. Severe dyspnea and tachycardia related to her severe anemia. 5. History of the of deep venous thrombosis. RECOMMENDATION: 1. Continue gentle IV hydration. 2. Agree with supportive transfusion with packed red blood cells. 3. Due to her significant thrombocytopenia, consider holding Lovenox at least until platelet count is 50,000 or higher. 4. She has completed a total of 4 cycles of cisplatin and Gemzar. May consider repeating imaging study. She was due to have it done in 2 days in the outpatient setting. We could do it as an inpatient. If her CT scan of the abdomen and pelvis are negative, then may consider proceeding with radical cystectomy once she improved from her current systemic therapy. The above was discussed in detail with the patient. I have answered all questions. Thank you very much for asking me to participate in the care of this nice lady. HARLAN / VANCEN: [id number] /
[2017-08-08] MEDS: PROCHLORPERAZINE 10 MG TAB PO SCH ×2 (16:59→20:56)
[2017-08-08] MEDS: GABAPENTIN 400 MG CAP PO SCH ×2 (16:59→22:23)
[2017-08-08 17:50] LABS: Glucose,Whole Blood 206 mg/dL (75-99)
[2017-08-08 20:15] LABS: Glucose,Whole Blood 254 mg/dL (75-99)
[2017-08-08 23:44] LABS: Anisocytosis Slight; HCT 24.5 % (34.0-46.0); MCH 30.7 pg (25.0-35.0); MCHC 33.1 g/dL (31.0-37.0); MCV 92.8 fL (80.0-100.0); Mean Platelet Volume 8.6; Platelet Count 30 k/uL (150-450); RBC 2.65 m/uL (3.80-5.40); RDW 16.6 % (11.5-15.5); WBC 24.9 k/uL (3.8-10.6)
[2017-08-08 23:45] LABS: HGB 8.1 gm/dL (11.4-16.0)
[2017-08-09 00:10] LABS: Lymphocytes # (M) 3.24 k/uL (1.0-4.8); Monocytes # (M) 0.25 k/uL (0-1.0); Neutrophils # (M) 21.41 k/uL (1.3-7.7); Neutrophils % (M) 86 %; Nucleated Red Blood Cells 0 /100 WBC (0-0); Total Cells Counted 100
[2017-08-09] MEDS: ONDANSETRON 4 MG TAB PO SCH ×4 (00:13→17:43)
[2017-08-09] MEDS: PROCHLORPERAZINE 10 MG TAB PO SCH ×4 (02:24→21:08)
[2017-08-09] MEDS ORDERED: INSULIN DETEMIR 100 UNIT/ML 10 ML VIAL SQ SCH (06:44)
[2017-08-09 07:24] LABS: Glucose,Whole Blood 140 mg/dL (75-99)
[2017-08-09] MEDS: INSULIN ASPART 100 UNIT/ML 1 ML 10 ML VIAL SQ SCH ×3 (08:07→17:43)
[2017-08-09] MEDS: GABAPENTIN 400 MG CAP PO SCH ×3 (08:10→21:08)
[2017-08-09] MEDS: CYCLOBENZAPRINE 10 MG TAB PO SCH ×3 (08:10→21:08)
[2017-08-09] MEDS: PANTOPRAZOLE 40 MG TABLET PO SCH (08:11)
[2017-08-09 08:21] LABS: Anisocytosis Slight; Basophils % (A) 0 %; Eosinophils # (A) 0.2 k/uL (0-0.7); Eosinophils % (A) 1 %; HCT 25.2 % (34.0-46.0); HGB 8.5 gm/dL (11.4-16.0); Lymphocytes # (A) 3.2 k/uL (1.0-4.8); Lymphocytes % (A) 15 %; MCH 31.4 pg (25.0-35.0); MCHC 33.6 g/dL (31.0-37.0); MCV 93.6 fL (80.0-100.0); Mean Platelet Volume 7.9; Monocytes # (A) 0.2 k/uL (0-1.0); Monocytes % (A) 1 %; Neutrophils # (A) 17.5 k/uL (1.3-7.7); Neutrophils % (A) 83 %; RBC 2.69 m/uL (3.80-5.40); RDW 17.7 % (11.5-15.5); WBC 21.2 k/uL (3.8-10.6)
[2017-08-09 08:30] LABS: Albumin 2.9 g/dL (3.5-5.0); Calcium 7.2 mg/dL (8.4-10.2); Potassium 4.6 mmol/L (3.5-5.1); Total Bilirubin 0.5 mg/dL (0.2-1.3); Total Protein 5.2 g/dL (6.3-8.2)
[2017-08-09 08:47] LABS: Platelet Count 29 k/uL (150-450)
[2017-08-09] MEDS ORDERED: NON-FORMULARY DRUG (Liraglutide [Victoza 3-Pak] 1.8 MG) SQ SCH (09:00)
[2017-08-09] MEDS: ALBUTEROL NEBULIZED 2.5 MG/3 ML INHALATION SCH ×4 (09:07→19:03)
--- NOTE | 2017-08-09 09:29 | PN ---
PROGRESS NOTE DATE OF SERVICE: 08/09/2017 She is less short of breath. Her hemoglobin was 8.1 last night. Post transfusion, hemoglobin from this morning is pending at this time. She is sitting up in a chair, about to have breakfast. She is in no respiratory distress. Her blood pressure at 96/49, respiratory rate of 16, pulse rate 97, temperature 98 degrees Fahrenheit, O2 saturation on room air 95%. HEENT reveals no new changes. Chest is clear. Cardiovascular system reveals an S1, S2. Abdomen is soft. There is trace pedal edema. White count is 24.9, hemoglobin of 8.1, platelet count of 30,000. IMPRESSION: 1. Dyspnea,.in part due to severe anemia, due to recent chemotherapy. 2. Possible obstructive sleep apnea for which she would require an outpatient workup. 3. Doubt primary lung disease, but would require an outpatient PFT and close follow up with Dr. Riley. I agree with possible discharge planning today if she is otherwise stable later on today. 4. Bladder cancer for which she will require resectional surgery within the next few weeks. 5. Thrombocytopenia for which she is being followed by Oncology and is likely chemotherapy related. MMODL / IJN: [id number] /
[2017-08-09] MEDS: HYDROmorphone 0.5 MG/0.5 ML SYRINGE IVP PRN (10:56)
[2017-08-09 11:15] LABS: Glucose,Whole Blood 160 mg/dL (75-99)
[2017-08-09 11:45] LABS: Hemoglobin A1C 9.2 % (4.0-6.0)
--- NOTE | 2017-08-09 12:52 | CT ---
EXAMINATION TYPE: CT abdomen pelvis w con DATE OF EXAM: 08/09/2017 COMPARISON: 03/30/2017 HISTORY: 62-year-old female Generalized pain with nausea. Currently being treated for bladder cancer TECHNIQUE: Contiguous axial scanning of the abdomen and pelvis following administration of 100 ml Omn ipaque 300 IV contrast. Delayed images through the kidneys and coronal/sagittal reconstructions perf ormed. CT DLP: 3836.7 mGycm Automated exposure control for dose reduction was used. FINDINGS: A CVC catheter terminates at the cavoatrial junction. Heart is normal size without pericardial effusi on. Coronary vessel calcifications are present and are a marker for coronary artery disease. Liver enlarged at 22.5 cm. Portal venous system patent. No biliary ductal dilatation. Cholecystectomy clips. Adrenal glands, kidneys, spleen with small anterior splenule, atrophic pancreas show no gross abnorma lity. No dilated small bowel, free fluid, or free air. No mesenteric or retroperitoneal lymphadenopathy. Soft tissue nodularity along the subcutaneous fat of the anterior abdomen along with a few foci of cu taneous air suggest subcutaneous injections. Mild stool burden without pericolonic inflammatory change. A distal sigmoid resection and reanastomos is is demonstrated. Assessment of the pelvis is limited due to extensive artifacts from the patient's bilateral hip repla cements. Portion of the anterior bladder dome is seen and shows wall thickening. No evident pelvic fl uid collection or obvious lymphadenopathy. What appears to be the left ovary is seen. Uterus surgically absent. Bones: L3-S1 posterior and interbody fusion changes with laminectomies. Bilateral hip replacements. A dditional laminectomy at L1-L2 with moderate to severe degenerative disc disease at this level. IMPRESSION: 1. NO ACUTE INFLAMMATORY PROCESS IDENTIFIED IN THE ABDOMEN OR PELVIS TO EXPLAIN THE PATIENT'S SYMPTOM S. 2. VERY LIMITED ASSESSMENT OF PELVIC STRUCTURES DUE TO EXTENSIVE ARTIFACT FROM THE PATIENT'S BILATERA L HIP REPLACEMENTS. THERE IS SOME WALL THICKENING PARTIALLY VISUALIZED INVOLVING THE ANTERIOR BLADDER DOME THAT COULD REPRESENT CYSTITIS, POSTTREATMENT CHANGE, OR PATIENT'S UNDERLYING NEOPLASM. 3. HEPATOMEGALY (22.5 CM). 4. PRIOR DISTAL SIGMOID RESECTION AND RE-ANASTOMOSIS.
--- NOTE | 2017-08-09 13:03 | P.PN ---
Subjective This is a 62-year-old female one of Dr. Lopez with a previous medical history significant for stage II bladder cancer that was diagnosed back in May 2017 after she had a cystoscopy and ended up having tumor removal with Dr. Alvarado and she was sent to [facility] that time she was started on chemotherapy in the form of Gemzar and the cisplatin back then and the patient did have her last chemotherapy about 3 days ago and she did receive her Neulasta injection as well, patient has been having significant shortness of breath over the last the 2 weeks apparently she was seen by Dr. Lopez in the office last Wednesday and she was sent to see Dr. Andrews from cardiology for evaluation of her heart and she was checked okay and she was supposed to see tomorrow morning in the office for pulmonary evaluation, however the patient became quite short of breath yesterday and she ended up into a panic situation when she was extremity tachycardic and she was dyspneic ended up coming to the ER at [facility] with her daughter she was seen and evaluated in the ER and the patient to the was found to have a leukocytosis with a white count of 40, 000 along with anemia as well as thrombus cytopenia due to recent chemotherapy, and the patient was admitted to the hospital for evaluation she was a bit dehydrated she was given IV fluid in the form of normal saline and she was started on her medication hematology oncology consultation was obtained. 08/09: Patient was evaluated this morning, she was noted to be sitting up in the bedside recliner. She received 2 units of packed red blood cells. Hemoglobin 8.5, platelet count 29, blood cultures show no growth today, vital signs are stable blood pressure slightly low at 96/49 with heart rate of 97. Patient does complain of generalized weakness and some dizziness with standing, physical therapy consult placed, will keep patient for 1 more day, she is pending a CT of the pelvis. Oncology and pulmonology on consult. Objective - Vital Signs Vital signs: Vital Signs Temp 98.0 F 08/09/17 07:46 Pulse 84 08/09/17 09:18 Resp 16 08/09/17 07:46 BP 96/49 08/09/17 07:46 Pulse Ox 95 08/09/17 07:46 Intake & Output 08/08/17 08/09/17 08/09/17 18:59 06:59 18:59 Intake Total 1028 1860 Balance 1028 1860 Intake: Intake, IV Titration 600 600 Amount Sodium Chloride 0.9% 1, 600 600 000 ml @ 75 mls/hr IV . [id number] [facility] Rx#:[id number] Oral 118 950 Blood Product 310 310 Rc As-1 Unit 310 [id number] Rc As-3 Unit 310 [id number] Other: # Voids 2 4 2 # Bowel Movements 1 - Exam - Constitutional General appearance: mild distress, obese - EENT Eyes: anicteric sclerae, EOMI, PERRLA, no ptosis, no scleral icterus, normal appearance ENT: hearing grossly normal, NA/AT, normal oropharynx, no thrush Ears: bilateral: normal - Neck Neck: no lymphadenopathy, normal ROM, no rigidity, no stridor Carotids: bilateral: upstroke delayed - Respiratory Respiratory: bilateral: diminished, negative: dullness, rales, rhonchi, wheezing , prolonged expiration - Cardiovascular Rhythm: regular Heart sounds: normal: S1, S2 Abnormal Heart Sounds: systolic murmur, no S3 Gallop - Gastrointestinal General gastrointestinal: normal bowel sounds, soft, no splenomegaly, no tenderness, no umbilical hernia, no ventral hernia - Integumentary Integumentary: normal, normal turgor - Neurologic Neurologic: CNII-XII intact - Musculoskeletal Musculoskeletal: generalized weakness, strength equal bilaterally - Psychiatric Psychiatric: A&O x's 3, appropriate affect, intact judgment & insight - Labs CBC & Chem 7: 08/09/17 07:51 08/09/17 07:51 Labs: Abnormal Lab Results - Last 24 Hours (Table) 08/08/17 08/08/17 08/08/17 Range/Units 07:18 11:13 17:47 WBC (3.8-10.6) k/uL RBC (3.80-5.40) m/uL Hgb (11.4-16.0) gm/dL Hct (34.0-46.0) % RDW (11.5-15.5) % Plt Count (150-450) k/uL Neutrophils # (1.3-7.7) k/uL Neutrophils # (Manual) (1.3-7.7) k/uL BUN (7-17) mg/dL Creatinine (0.52-1.04) mg/dL Glucose (74-99) mg/dL POC Glucose (mg/dL) 158 H 206 H (75-99) mg/dL Calcium (8.4-10.2) mg/dL Total Protein (6.3-8.2) g/dL Albumin (3.5-5.0) g/dL Crossmatch See Detail 08/08/17 08/08/17 08/09/17 Range/Units 20:13 23:18 07:22 WBC 24.9 H (3.8-10.6) k/uL RBC 2.65 L (3.80-5.40) m/uL Hgb 8.1 L D (11.4-16.0) gm/dL Hct 24.5 L (34.0-46.0) % RDW 16.6 H (11.5-15.5) % Plt Count 30 L* (150-450) k/uL Neutrophils # (1.3-7.7) k/uL Neutrophils # (Manual) 21.41 H (1.3-7.7) k/uL BUN (7-17) mg/dL Creatinine (0.52-1.04) mg/dL Glucose (74-99) mg/dL POC Glucose (mg/dL) 254 H 140 H (75-99) mg/dL Calcium (8.4-10.2) mg/dL Total Protein (6.3-8.2) g/dL Albumin (3.5-5.0) g/dL Crossmatch 08/09/17 08/09/17 Range/Units 07:51 07:51 WBC 21.2 H (3.8-10.6) k/uL RBC 2.69 L (3.80-5.40) m/uL Hgb 8.5 L (11.4-16.0) gm/dL Hct 25.2 L (34.0-46.0) % RDW 17.7 H (11.5-15.5) % Plt Count 29 L* (150-450) k/uL Neutrophils # 17.5 H (1.3-7.7) k/uL Neutrophils # (Manual) (1.3-7.7) k/uL BUN 25 H (7-17) mg/dL Creatinine 1.14 H (0.52-1.04) mg/dL Glucose 128 H (74-99) mg/dL POC Glucose (mg/dL) (75-99) mg/dL Calcium 7.2 L (8.4-10.2) mg/dL Total Protein 5.2 L (6.3-8.2) g/dL Albumin 2.9 L (3.5-5.0) g/dL Crossmatch Microbiology - Last 24 Hours (Table) 08/07/17 18:33 Blood Culture - Preliminary Blood No Growth after 24 hours Assessment and Plan Plan: 1. Dyspnea on exertion likely related to COPD and an element of anxiety, doubt any from embolic disease namely pulmonary and was about this time as the patient is on Lovenox 150 mg subcu venously every 12 hours, Lovenox held until platelet count is above 50,000, pulmonary consultation, patient will need to have a pulmonary function tests as an outpatient, start the patient on DuoNeb 3 mL nebulization 4 times every day, oxygen support. 2. Leukocytosis likely related to the Neulasta. 3. Pancytopenia due to recent chemotherapy in the form of Gemzar and cisplatin. Chemotherapy precautions. Type and cross and transfuse 2 units of packed red blood cells given. 4. Diabetes mellitus type 2. Continue patient on Levemir 25 units at bedtime along with Humalog 10 units before each meal and Victoza daily. BGM before each meal and at bedtime. 5. Hyperlipidemia. Continue patient on Lipitor 40 mg orally once every day. 6. DVT of the right lower extremity. Continue Lovenox until the end of her life, held for now until platelet count is above 50,000. 7. History of TIA/CVA. Stable at this time. 8. Stage II bladder cancer and her the care of hematology oncology. Consult Dr. Dexter. 9. Spondylosis of the lumbar spine. Continue patient on gabapentin 400 mg orally 2 times every day as well as diazepam 2 mg 3 times every day as needed and to milligram at bedtime along with Flexeril 10 mg at bedtime. 10. Peripheral neuropathy. Continue gabapentin as ordered. 11. DVT prophylaxis. Currently on Lovenox, lovenox on hold 12. GI prophylaxis. Continue Protonix 40 mg orally once every day. 13. Admit to inpatient. 14. Estimated length of stay 2 midnights. 15. Patient is full code. The above impression and plan of care have been discussed and directed by signing physician. Dona Rainey nurse practitioner acting as scribe for signing physician.
[2017-08-09 14:49] VITALS: BMI 41.3
[2017-08-09] MEDS: SODIUM CHLORIDE 0.9% 1,000 ML IV SCH (15:49)
[2017-08-09 17:09] LABS: Glucose,Whole Blood 233 mg/dL (75-99)
--- NOTE | 2017-08-09 19:17 | P.PN ---
Subjective Progress Note Date: 08/09/17 Principal diagnosis: LIAM, dehydration Pt sen today in follow up, pt is feeling a little better today then on admit , appetite is still poor, mild nausea, no recent fevers, vomiting, she is having SOB on exertion and her endurance is low, she needs help to get to bathroom as she gets SOB and weak in the legs, no diarrhea,constipation, swelling or new pain to report. Objective - Vital Signs Vital signs: Vital Signs Temp 97.9 F 08/09/17 14:32 Pulse 92 08/09/17 19:03 Resp 16 08/09/17 14:32 BP 104/45 08/09/17 14:32 Pulse Ox 95 08/09/17 16:18 Intake & Output 08/09/17 08/09/17 08/10/17 06:59 18:59 06:59 Intake Total 1860 600 Balance 1860 600 Weight 130.635 kg Intake: Intake, IV Titration 600 600 Amount Sodium Chloride 0.9% 1, 600 000 ml @ 75 mls/hr IV . [id number] [facility] Rx#:[id number] Sodium Chloride 0.9% 1, 600 000 ml @ 75 mls/hr IV . [id number] [facility] Rx#:[id number] Oral 950 Blood Product 310 Rc As-1 Unit 310 [id number] Other: # Voids 4 1 # Bowel Movements 1 - Constitutional General appearance: Present: cooperative, no acute distress, obese - Respiratory Respiratory: bilateral: CTA - Cardiovascular Rhythm: regular Heart sounds: normal: S1, S2 - Gastrointestinal General gastrointestinal: Present: normal bowel sounds, soft - Integumentary Integumentary: Present: normal turgor, pale - Neurologic Neurologic: Present: CNII-XII intact - Musculoskeletal Musculoskeletal: Present: strength equal bilaterally - Psychiatric Psychiatric: Present: A&O x's 3, appropriate affect, intact judgment & insight - Labs CBC & Chem 7: 08/09/17 07:51 08/09/17 07:51 Labs: Abnormal Lab Results - Last 24 Hours (Table) 08/08/17 08/08/17 08/08/17 Range/Units 07:18 07:18 20:13 WBC (3.8-10.6) k/uL RBC (3.80-5.40) m/uL Hgb (11.4-16.0) gm/dL Hct (34.0-46.0) % RDW (11.5-15.5) % Plt Count (150-450) k/uL Neutrophils # (1.3-7.7) k/uL Neutrophils # (Manual) (1.3-7.7) k/uL BUN (7-17) mg/dL Creatinine (0.52-1.04) mg/dL Glucose (74-99) mg/dL POC Glucose (mg/dL) 254 H (75-99) mg/dL Hemoglobin A1c 9.2 H (4.0-6.0) % Calcium (8.4-10.2) mg/dL Total Protein (6.3-8.2) g/dL Albumin (3.5-5.0) g/dL Crossmatch See Detail 08/08/17 08/09/17 08/09/17 Range/Units 23:18 07:22 07:51 WBC 24.9 H 21.2 H (3.8-10.6) k/uL RBC 2.65 L 2.69 L (3.80-5.40) m/uL Hgb 8.1 L D 8.5 L (11.4-16.0) gm/dL Hct 24.5 L 25.2 L (34.0-46.0) % RDW 16.6 H 17.7 H (11.5-15.5) % Plt Count 30 L* 29 L* (150-450) k/uL Neutrophils # 17.5 H (1.3-7.7) k/uL Neutrophils # (Manual) 21.41 H (1.3-7.7) k/uL BUN (7-17) mg/dL Creatinine (0.52-1.04) mg/dL Glucose (74-99) mg/dL POC Glucose (mg/dL) 140 H (75-99) mg/dL Hemoglobin A1c (4.0-6.0) % Calcium (8.4-10.2) mg/dL Total Protein (6.3-8.2) g/dL Albumin (3.5-5.0) g/dL Crossmatch 08/09/17 08/09/17 08/09/17 Range/Units 07:51 11:13 17:07 WBC (3.8-10.6) k/uL RBC (3.80-5.40) m/uL Hgb (11.4-16.0) gm/dL Hct (34.0-46.0) % RDW (11.5-15.5) % Plt Count (150-450) k/uL Neutrophils # (1.3-7.7) k/uL Neutrophils # (Manual) (1.3-7.7) k/uL BUN 25 H (7-17) mg/dL Creatinine 1.14 H (0.52-1.04) mg/dL Glucose 128 H (74-99) mg/dL POC Glucose (mg/dL) 160 H 233 H (75-99) mg/dL Hemoglobin A1c (4.0-6.0) % Calcium 7.2 L (8.4-10.2) mg/dL Total Protein 5.2 L (6.3-8.2) g/dL Albumin 2.9 L (3.5-5.0) g/dL Crossmatch Microbiology - Last 24 Hours (Table) 08/07/17 18:33 Blood Culture - Preliminary Blood No Growth after 24 hours Assessment and Plan (1) Dehydration Narrative/Plan: Improving with hydration, pt is starting to tolerate oral intake Current Visit: Yes Status: Acute Priority: High Code(s): E86.0 - DEHYDRATION SNOMED Code(s): 18175108 (2) Primary bladder adenocarcinoma Narrative/Plan: Pt has completed neoadjuvant treatment, CT AP results pending when pt seen, this will determine if pt is ready to go to surgery or if more treatment is recommended, f/u in AM. Current Visit: Yes Status: Acute Priority: High Code(s): C67.9 - MALIGNANT NEOPLASM OF BLADDER, UNSPECIFIED SNOMED Code(s): 933195739 (3) Bicytopenia Narrative/Plan: Due to chemo, no PRBCs or platelet transfusion today, CBC daily No asa, NSAIDs or anticoagulants due to low platelets Current Visit: Yes Status: Acute Priority: Medium Code(s): D75.89 - OTHER SPECIFIED DISEASES OF BLOOD AND BLOOD-FORMING ORGANS SNOMED Code(s): 107290112 (4) Neutrophilic leukocytosis Narrative/Plan: Secondary to GCSF given after last cycle of chemo about 4 days ago. Current Visit: Yes Status: Acute Priority: Medium Code(s): D72.9 - DISORDER OF WHITE BLOOD CELLS, UNSPECIFIED SNOMED Code(s): 460945995
[2017-08-09 20:13] LABS: Glucose,Whole Blood 313 mg/dL (75-99)
[2017-08-09] MEDS: AMITRIPTYLINE HCL 50 MG TAB PO SCH (21:08)
[2017-08-09] MEDS: ATORVASTATIN 40 MG TAB PO SCH (21:08)
[2017-08-09] MEDS: DIAZEPAM 5 MG TAB PO SCH (21:14)
[2017-08-10] MEDS: ONDANSETRON 4 MG TAB PO SCH ×3 (00:23→11:25)
[2017-08-10] MEDS: SODIUM CHLORIDE 0.9% 1,000 ML IV SCH (00:27)
[2017-08-10] MEDS: PROCHLORPERAZINE 10 MG TAB PO SCH ×2 (03:33→07:28)
[2017-08-10] MEDS: HYDROmorphone 0.5 MG/0.5 ML SYRINGE IVP PRN (04:10)
[2017-08-10 06:16] VITALS: BP 111/62; PULSE 102; RESP 16; TEMP 97.5
[2017-08-10 07:07] LABS: Glucose,Whole Blood 204 mg/dL (75-99)
[2017-08-10] MEDS: GABAPENTIN 400 MG CAP PO SCH (07:28)
[2017-08-10] MEDS: INSULIN ASPART 100 UNIT/ML 1 ML 10 ML VIAL SQ SCH ×2 (07:28→15:12)
[2017-08-10] MEDS: CYCLOBENZAPRINE 10 MG TAB PO SCH (07:28)
[2017-08-10] MEDS: PANTOPRAZOLE 40 MG TABLET PO SCH (07:28)
[2017-08-10 08:16] LABS: Anisocytosis Slight; HCT 23.1 % (34.0-46.0); HGB 7.7 gm/dL (11.4-16.0); MCH 31.3 pg (25.0-35.0); MCHC 33.4 g/dL (31.0-37.0); MCV 93.7 fL (80.0-100.0); RBC 2.46 m/uL (3.80-5.40); RDW 16.5 % (11.5-15.5); WBC 10.5 k/uL (3.8-10.6)
[2017-08-10 08:30] LABS: Calcium 6.9 mg/dL (8.4-10.2); Potassium 4.3 mmol/L (3.5-5.1)
[2017-08-10 08:36] LABS: Platelet Count 20 k/uL (150-450)
[2017-08-10] MEDS: ALBUTEROL NEBULIZED 2.5 MG/3 ML INHALATION SCH (09:02)
[2017-08-10] MEDS ORDERED: ALBUTEROL NEBULIZED 2.5 MG/3 ML INHALATION PRN (09:16)
--- NOTE | 2017-08-10 09:29 | P.PN ---
Subjective Progress Note Date: 08/10/17 Interval history 08/10/17- patient is being seen examined and evaluated today on rounds. She did receive 2 units of packed red blood cells yesterday. Her hemoglobin today is 7.7. Her platelet count is 20. Hematology/oncology on consult and are aware. Her BUN is 21 her creatinine is 1.07 nephrology is also on consult. Her echocardiogram is pending. Upon examination the patient's resting up in bedside chair on room air. She states she did go for a walk earlier this morning. She does get winded with walking however she states her shortness of breath is improving when she is resting. She also is requesting that her albuterol treatments be switched to as needed. She feels her breathing is starting to go back towards her baseline. Patient is noted to have some continued tachycardia and cardiology is on consult her echocardiogram is pending. She is afebrile no further complaints Objective - Vital Signs Vital signs: Vital Signs Temp 97.5 F L 08/10/17 06:16 Pulse 102 H 08/10/17 07:32 Resp 16 08/10/17 07:32 BP 111/62 08/10/17 06:16 Pulse Ox 94 L 08/10/17 06:16 Intake & Output 08/09/17 08/10/17 08/10/17 18:59 06:59 18:59 Intake Total 600 2040 Balance 600 2040 Weight 130.635 kg 130.635 kg Intake: Intake, IV Titration 600 900 Amount Sodium Chloride 0.9% 1, 600 900 000 ml @ 75 mls/hr IV . [id number] [facility] Rx#:[id number] Oral 1140 Other: # Voids 1 3 1 # Bowel Movements 1 - Exam GENERAL EXAM: Alert, obese, comfortable in no apparent distress. HEAD: Normocephalic, hair loss due to cancer treatments. EYES: Normal reaction of pupils, equal size. NOSE: Clear with pink turbinates. THROAT: No erythema or exudates. NECK: No masses, no JVD. CHEST: No chest wall deformity. LUNGS: Equal air entry with no crackles, wheeze, rhonchi or dullness. CVS: S1 and S2 normal with no audible mumurs, regular rhythm, tachycardia. ABDOMEN: No hepatosplenomegaly, normal bowel sounds, no guarding or rigidity. EXTREMITIES: Trace pedal edema noted, pedal pulses palpable. CENTRAL NERVOUS SYSTEM: No focal deficits, tone is normal in all 4 extremities. - Labs CBC & Chem 7: 08/10/17 07:40 08/10/17 07:40 Labs: Abnormal Lab Results - Last 24 Hours (Table) 08/08/17 08/09/17 08/09/17 Range/Units 07:18 11:13 17:07 RBC (3.80-5.40) m/uL Hgb (11.4-16.0) gm/dL Hct (34.0-46.0) % RDW (11.5-15.5) % Plt Count (150-450) k/uL BUN (7-17) mg/dL Creatinine (0.52-1.04) mg/dL Glucose (74-99) mg/dL POC Glucose (mg/dL) 160 H 233 H (75-99) mg/dL Hemoglobin A1c 9.2 H (4.0-6.0) % Calcium (8.4-10.2) mg/dL 08/09/17 08/10/17 08/10/17 Range/Units 20:10 07:05 07:40 RBC 2.46 L (3.80-5.40) m/uL Hgb 7.7 L (11.4-16.0) gm/dL Hct 23.1 L (34.0-46.0) % RDW 16.5 H (11.5-15.5) % Plt Count 20 L* (150-450) k/uL BUN (7-17) mg/dL Creatinine (0.52-1.04) mg/dL Glucose (74-99) mg/dL POC Glucose (mg/dL) 313 H 204 H (75-99) mg/dL Hemoglobin A1c (4.0-6.0) % Calcium (8.4-10.2) mg/dL 08/10/17 Range/Units 07:40 RBC (3.80-5.40) m/uL Hgb (11.4-16.0) gm/dL Hct (34.0-46.0) % RDW (11.5-15.5) % Plt Count (150-450) k/uL BUN 21 H (7-17) mg/dL Creatinine 1.07 H (0.52-1.04) mg/dL Glucose 170 H (74-99) mg/dL POC Glucose (mg/dL) (75-99) mg/dL Hemoglobin A1c (4.0-6.0) % Calcium 6.9 L (8.4-10.2) mg/dL Microbiology - Last 24 Hours (Table) 08/07/17 18:33 Blood Culture - Preliminary Blood No Growth after 48 hours Assessment and Plan Assessment: Assessment Dyspnea related to severe anemia and recent chemotherapy Possible obstructive sleep apnea Doubtful of a primary lung disease Bladder cancer, stage II which requires resectional surgery in the future Thrombocytopenia Pancytopenia DVT of the right lower extremity, in May at [facility] Diabetes mellitus type 2 Plan Patient is cleared for discharge from a pulmonary standpoint She will require an outpatient PFT as well as a sleep study Medications have been reviewed and will be continued as ordered. Change scheduled albuterol to as needed Hematology/oncology on consult Cardiology on consult, echocardiogram pending Lovenox on hold due to low platelet count Continue with pulmonary hygiene, coughing and deep breathing exercises, and supportive care. Supplemental oxygen to maintain oxygen saturations of 92% or better. Continue nebulizer treatments. GI and DVT prophylaxis: Protonix and TEDS. We will continue to monitor labs/results and adjust treatment as necessary. Further recommendations pending. I performed an examination of the patient and discussed their management with the nurse practitioner. I have reviewed the nurse practitioner's note and agree with the documented findings and plan of care.
--- NOTE | 2017-08-10 10:34 | ECHOF ---
Referral Reason:dyspnea MEASUREMENTS -------- HEIGHT: 180.3 cm WEIGHT: 130.6 kg BP: 116/60 IVSd: 1.3 cm (0.6 - 1.1) LVIDd: 3.2 cm (3.9 - 5.3) LVPWd: 1.3 cm (0.6 - 1.1) IVSs: 1.4 cm LVIDs: 2.5 cm LVPWs: 1.4 cm MV E Corby: 0.86 m/s MV DecT: 231 ms MV A Corby: 1.01 m/s MV E/A Ratio: 0.85 RAP: 5.00 mmHg RVSP: 14.41 mmHg FINDINGS -------- Undetermined rhythm. This was a technically difficult study with suboptimal views. The left ventricular size is normal. There is mild concentric left ventricular hypertrophy. Overa ll left ventricular systolic function is low-normal with, an EF between 50 - 55 %. Basal inferolate ral hypokinesis. The right ventricle is normal in size and function. The left atrium is normal in size. The right atrium is normal in size. Lumason used The aortic valve is trileaflet, and appears structurally normal. No aortic stenosis or regurgitation. There is trace mitral regurgitation. Trace tricuspid regurgitation present. The right ventricular systolic pressure, as measured by Dopp ler, is 14.41mmHg. The pulmonic valve was not well visualized. The aortic root size is normal. The pericardium is normal. CONCLUSIONS -------- 1. Undetermined rhythm. 2. This was a technically difficult study with suboptimal views. 3. The left ventricular size is normal. 4. There is mild concentric left ventricular hypertrophy. 5. Overall left ventricular systolic function is low-normal with, an EF between 50 - 55 %. 6. Basal inferolateral hypokinesis. 7. The right ventricle is normal in size and function. 8. The left atrium is normal in size. 9. The right atrium is normal in size. 10. Lumason used 11. The aortic valve is trileaflet, and appears structurally normal. No aortic stenosis or regurgitat ion. 12. There is trace mitral regurgitation. 13. Trace tricuspid regurgitation present. 14. The right ventricular systolic pressure, as measured by Doppler, is 14.41mmHg. 15. The pulmonic valve was not well visualized. 16. The aortic root size is normal. 17. The pericardium is normal. REIMBURSEMENT SPEC: Ирина Espino RDCS
[2017-08-10 11:33] LABS: Glucose,Whole Blood 246 mg/dL (75-99)
--- NOTE | 2017-08-10 13:19 | P.DS ---
Providers Date of admission: 08/07/17 22:16 Attending physician: Philipp Montelongo Consults: 08/07/17 22:07 Consult Physician Routine Consulting Provider: Skye Dexter Consult Reason/Comments: History of bladder cancer on chemotherapy Do you want consulting provider notified?: Already Contacted Consult Physician Routine Consulting Provider: Ebony Riley Consult Reason/Comments: Dyspnea, multifactorial Do you want consulting provider notified?: Yes Primary care physician: [facility] Course: This is a 62-year-old female one of Dr. Lopez with a previous medical history significant for stage II bladder cancer that was diagnosed back in May 2017 after she had a cystoscopy and ended up having tumor removal with Dr. Alvarado and she was sent to [facility] that time she was started on chemotherapy in the form of Gemzar and the cisplatin back then and the patient did have her last chemotherapy about 3 days ago and she did receive her Neulasta injection as well, patient has been having significant shortness of breath over the last the 2 weeks apparently she was seen by Dr. Lopez in the office last Wednesday and she was sent to see Dr. Andrews from cardiology for evaluation of her heart and she was checked okay and she was supposed to see tomorrow morning in the office for pulmonary evaluation, however the patient became quite short of breath yesterday and she ended up into a panic situation when she was extremity tachycardic and she was dyspneic ended up coming to the ER at [facility] with her daughter she was seen and evaluated in the ER and the patient to the was found to have a leukocytosis with a white count of 40, 000 along with anemia as well as thrombus cytopenia due to recent chemotherapy, and the patient was admitted to the hospital for evaluation she was a bit dehydrated she was given IV fluid in the form of normal saline and she was started on her medication hematology oncology consultation was obtained. 08/09: Patient was evaluated this morning, she was noted to be sitting up in the bedside recliner. She received 2 units of packed red blood cells. Hemoglobin 8.5, platelet count 29, blood cultures show no growth today, vital signs are stable blood pressure slightly low at 96/49 with heart rate of 97. Patient does complain of generalized weakness and some dizziness with standing, physical therapy consult placed, will keep patient for 1 more day, she is pending a CT of the pelvis. Oncology and pulmonology on consult. 08/10: Patient's signs are stable, platelet count low at 20, hemoglobin 7.7, due to chemotherapy, no packed red blood cells or platelet transfusion today. Blood cultures show no growth to date. Echocardiogram shows ejection fraction between 50-55%, trace mitral regurgitation, trace tricuspid regurgitation. She reports she is feeling much better today. Anticoagulation will be held until platelet count is above 50,000. CT of the pelvis shows anterior bilateral thickening, she'll follow-up with oncology and have her CBC repeated early next week. Discharge diagnoses 1. Dyspnea on exertion likely related to COPD and an element of anxiety 2. Leukocytosis 3. Pancytopenia due to recent chemotherapy in the form of Gemzar and cisplatin. 4. Diabetes mellitus type 2. 5. Hyperlipidemia. 6. DVT of the right lower extremity. 7. History of TIA/CVA. 8. Stage II bladder cancer and her the care of hematology oncology. 9. Spondylosis of the lumbar spine. 10. Peripheral neuropathy. The above impression and plan of care have been discussed and directed by signing physician. Dona Rainey nurse practitioner acting as scribe for signing physician. Patient Condition at Discharge: Good Plan - Discharge Summary Discharge Rx Participant: Yes New Discharge Prescriptions: No Action Atorvastatin Calcium [Lipitor] 10 mg PO HS Liraglutide [Victoza 3-Vaibhav] 1.8 mg SQ DAILY Insulin Glargine [Lantus] 60 unit SQ HS Cyclobenzaprine [Flexeril] 10 mg PO TID Diazepam [Valium] 10 mg PO HS Amitriptyline HCl [Elavil] 100 mg PO HS Ondansetron HCl [Zofran] 8 mg PO Q6HR PRN PRN Reason: Nausea Enoxaparin [Lovenox] 150 mg SQ Q12H INSULIN LISPRO (humaLOG) [humaLOG] 10 units SQ TID Prochlorperazine [Compazine] 10 mg PO Q6H PRN PRN Reason: Nausea Diazepam [Valium] 2 mg PO TID PRN PRN Reason: Anxiety Gabapentin [Neurontin] 400 mg PO TID Potassium 99 mg PO DAILY Multivitamins, Thera [Multivitamin (formulary)] 1 tab PO DAILY Magnesium 200 mg PO DAILY Insulin Glargine [Lantus] 40 unit SQ QAM Ferrous Sulfate [Feosol] 325 mg PO DAILY Cholecalciferol [Vitamin D3] 1,000 unit PO DAILY Discharge Medication List Amitriptyline HCl [Elavil] 100 mg PO HS 07/17/15 [History] Atorvastatin Calcium [Lipitor] 10 mg PO HS 07/17/15 [History] Cyclobenzaprine [Flexeril] 10 mg PO TID 07/17/15 [History] Diazepam [Valium] 10 mg PO HS 07/17/15 [History] Insulin Glargine [Lantus] 60 unit SQ HS 07/17/15 [History] Liraglutide [Victoza 3-Vaibhav] 1.8 mg SQ DAILY 07/17/15 [History] Diazepam [Valium] 2 mg PO TID PRN 08/07/17 [History] Enoxaparin [Lovenox] 150 mg SQ Q12H 08/07/17 [History] INSULIN LISPRO (humaLOG) [humaLOG] 10 units SQ TID 08/07/17 [History] Ondansetron HCl [Zofran] 8 mg PO Q6HR PRN 08/07/17 [History] Prochlorperazine [Compazine] 10 mg PO Q6H PRN 08/07/17 [History] Cholecalciferol [Vitamin D3] 1,000 unit PO DAILY 08/08/17 [History] Ferrous Sulfate [Feosol] 325 mg PO DAILY 08/08/17 [History] Gabapentin [Neurontin] 400 mg PO TID 08/08/17 [History] Insulin Glargine [Lantus] 40 unit SQ QAM 08/08/17 [History] Magnesium 200 mg PO DAILY 08/08/17 [History] Multivitamins, Thera [Multivitamin (formulary)] 1 tab PO DAILY 08/08/17 [History ] Potassium 99 mg PO DAILY 08/08/17 [History] Follow up Appointment(s)/Referral(s): Deniz Lopez MD [Primary Care Provider] - 1-2 days Andrew Estrella MD [STAFF PHYSICIAN] - 08/24/17 4:45 pm Monty Warren MD [STAFF PHYSICIAN] - 08/12/17 10:00 am (At the office on [address] Activity/Diet/Wound Care/Special Instructions: CBC at Dr. Estrella's office Sunday 08/13 at 2pm. This for a lab draw with review manager of counts
--- NOTE | 2017-08-10 14:14 | CDI ---
Last Revision, January 2017 Documentation Clarification Form Date: 08/10/2017 2:10:00 AM From: Natty AlamoBradshaw [facility], CCDS Admit Date: 08/07/2017 10:16:00 PM Patient Name: Sharyn Rodríguez Visit Number: [id number] Discharge Date: ATTENTION: The Clinical Documentation Specialists (CDI) and [facility] Coding Staff appreciate your assistance in clarifying documentation. Please respond to the clarification below the line at the bottom and electronically sign. The CDI & [facility] Coding staff will review the response and follow-up if needed. Please note: Queries are made part of the Legal Health Record. If you have any questions, please contact the author of this message via ITS. Dr. Philipp Montelongo: Per the History & Physical, the patient is diagnosed with dyspnea on exertion likely related to COPD and anxiety. History/Risk Factors: Bladder CA status post tumor removal, currently receiving chemotherapy. COPD, former smoker. Clinical Indicators: SOB & tachycardic, panicky. Also diagnosed with pancytopenia due to recent chemotherapy. VS: P 130, R 25 (sob), BP 141/64, PO 93 RA - 98 2Lnc. Treatment: IV fluid boluses x3, IV MagSulf, IV Dilaudid, IV Zofran, IV fluid rate 75. Received IV Lasix on day #2 for possible fluid overload. Consults: Cardiology, Pulmonary, Oncology, In your professional opinion, can you please clarify if the above findings and treatment signify any of the following? Acute Exacerbation of Chronic Obstructive Pulmonary Disease (COPD) COPD without acute exacerbation Chronic obstructive pulmonary disease with acute lower respiratory infection, please specify Other condition, please specify Unable to determine Please continue to document in your progress notes and discharge summary in order to capture severity of illness and risk of mortality. Include clinical findings that support your diagnosis. MTDD
--- NOTE | 2017-08-10 17:39 | P.PN ---
Subjective Progress Note Date: 08/10/17 Principal diagnosis: LIAM, dehydration Patient seen in follow-up, she feels pretty good today, she ambulated in the hallway with PT. No fevers, nausea, vomiting, breathing is stable, no diarrhea , constipation, bleeding or pain to report Objective - Vital Signs Vital signs: Vital Signs Temp 97.5 F L 08/10/17 06:16 Pulse 102 H 08/10/17 07:32 Resp 16 08/10/17 07:32 BP 111/62 08/10/17 06:16 Pulse Ox 94 L 08/10/17 06:16 Intake & Output 08/09/17 08/10/17 08/10/17 18:59 06:59 18:59 Intake Total 600 2040 Balance 600 2040 Weight 130.635 kg 130.635 kg Intake: Intake, IV Titration 600 900 Amount Sodium Chloride 0.9% 1, 600 900 000 ml @ 75 mls/hr IV . [id number] EDGAR Rx#:[id number] Oral 1140 Other: # Voids 1 3 2 # Bowel Movements 1 - Exam well-developed, obese, female, seen ambulating in the hallway, seen in room,sitting in the chair, no acute distress, A and O 4 - Constitutional General appearance: Present: cooperative, no acute distress, obese - Labs CBC & Chem 7: 08/10/17 07:40 08/10/17 07:40 Labs: Abnormal Lab Results - Last 24 Hours (Table) 08/09/17 08/10/17 08/10/17 Range/Units 20:10 07:05 07:40 RBC 2.46 L (3.80-5.40) m/uL Hgb 7.7 L (11.4-16.0) gm/dL Hct 23.1 L (34.0-46.0) % RDW 16.5 H (11.5-15.5) % Plt Count 20 L* (150-450) k/uL BUN (7-17) mg/dL Creatinine (0.52-1.04) mg/dL Glucose (74-99) mg/dL POC Glucose (mg/dL) 313 H 204 H (75-99) mg/dL Calcium (8.4-10.2) mg/dL 06/26/18 06/26/18 Range/Units 07:40 11:31 RBC (3.80-5.40) m/uL Hgb (11.4-16.0) gm/dL Hct (34.0-46.0) % RDW (11.5-15.5) % Plt Count (150-450) k/uL BUN 21 H (7-17) mg/dL Creatinine 1.07 H (0.52-1.04) mg/dL Glucose 170 H (74-99) mg/dL POC Glucose (mg/dL) 246 H (75-99) mg/dL Calcium 6.9 L (8.4-10.2) mg/dL Microbiology - Last 24 Hours (Table) 08/07/17 18:33 Blood Culture - Preliminary Blood No Growth after 48 hours Assessment and Plan (1) Dehydration Status: Resolved Priority: High Code(s): E86.0 - DEHYDRATION SNOMED Code(s ): 52480961 (2) Primary bladder adenocarcinoma Narrative/Plan: CT results reviewed with patient and daughter, looks as though patient is going to be able to proceed with surgery in the near future. CT results will be reviewed with Dr. Estrella, patient has follow-up already scheduled Status: Acute Priority: High Code(s): C67.9 - MALIGNANT NEOPLASM OF BLADDER , UNSPECIFIED SNOMED Code(s): 059223110 (3) Bicytopenia Narrative/Plan: aAnemia and thrombocytopenia noted, no acute intervention. Patient will be seen Wednesday in office for CBC. Patient educated on conserving energy and bleeding precautions, no aspirin, NSAIDs, hold anticoagulation for now Status: Acute Priority: Medium Code(s): D75.89 - OTHER SPECIFIED DISEASES OF BLOOD AND BLOOD-FORMING ORGANS SNOMED Code(s): 836589904 (4) Neutrophilic leukocytosis Status: Acute Priority: Medium Code(s): D72.9 - DISORDER OF WHITE BLOOD CELLS, UNSPECIFIED SNOMED Code(s): 221866153 Plan: Case briefly reviewed with Internal Medicine, patient okay from Hem/Onc to be discharged once cleared by IM and Consults
== END 2017-08-10 15:25 | disposition home or self-care (01) | DRG 190 ==
LOC: EC 18:22 → 3SUR 22:16 → 5ONC 08-08 08:48
PROVIDERS: ADMIT Internal Medicine; ATTEND Internal Medicine
PROC: 30230N1 Transfusion of Nonautologous Red Blood Cells into Peripheral Vein, Open Approach (ICD-10-PCS; principal; 2017-08-08)
DX: J44.1 Chronic obstructive pulmonary disease with (acute) exacerbation (principal); D61.810 Antineoplastic chemotherapy induced pancytopenia; Z68.41 Body mass index [BMI] 40.0-44.9, adult; E87.2 Acidosis; D69.59 Other secondary thrombocytopenia; E11.42 Type 2 diabetes mellitus with diabetic polyneuropathy; D64.81 Anemia due to antineoplastic chemotherapy; E83.42 Hypomagnesemia; C67.9 Malignant neoplasm of bladder, unspecified; E66.9 Obesity, unspecified; E86.0 Dehydration; E78.5 Hyperlipidemia, unspecified; K21.9 Gastro-esophageal reflux disease without esophagitis; M54.9 Dorsalgia, unspecified; D72.829 Elevated white blood cell count, unspecified; E89.0 Postprocedural hypothyroidism; M19.91 Primary osteoarthritis, unspecified site; M47.816 Spondylosis without myelopathy or radiculopathy, lumbar region; F41.9 Anxiety disorder, unspecified; T45.1X5A Adverse effect of antineoplastic and immunosuppressive drugs, initial encounter; Z71.3 Dietary counseling and surveillance; Z79.4 Long term (current) use of insulin; Z79.82 Long term (current) use of aspirin; Z79.899 Other long term (current) drug therapy; Z91.048 Other nonmedicinal substance allergy status; Z86.14 Personal history of Methicillin resistant Staphylococcus aureus infection; Z86.73 Personal history of transient ischemic attack (TIA), and cerebral infarction without residual deficits; Z87.891 Personal history of nicotine dependence; Z86.718 Personal history of other venous thrombosis and embolism; Z90.5 Acquired absence of kidney; Z90.710 Acquired absence of both cervix and uterus; Z96.643 Presence of artificial hip joint, bilateral; Z90.49 Acquired absence of other specified parts of digestive tract; Z98.42 Cataract extraction status, left eye; Z98.41 Cataract extraction status, right eye; Z82.49 Family history of ischemic heart disease and other diseases of the circulatory system; Z83.3 Family history of diabetes mellitus; Z80.3 Family history of malignant neoplasm of breast
CPT/HCPCS: 36415; 71046; 74177; 80048; 80053; 81001; 82550; 82553; 83036; 83605; 83735; 83880; 84484; 85025; 85027; 85610; 85730; 86850; 86900; 86901; 86920; 87040; 93005; 93306; 93970; 94640; 94760; 96361; 96365; 96366; 96375; 99285

== ENCOUNTER 2018-01-22 18:07 | Inpatient (IN) | payer MEDICARE, BC ==
[2018-01-23 06:10] LABS: Glucose,Whole Blood 153 mg/dL (75-99)
[2018-01-23] MEDS ORDERED: SODIUM CHLORIDE 0.9% 500 ML 500 ML IV ONE (09:28)
[2018-01-23] MEDS: SODIUM CHLORIDE 0.9% 1,000 ML IV SCH ×3 (10:22→21:57)
[2018-01-23] MEDS: MORPHINE SULFATE 2 MG/ML SYRINGE IVP PRN ×3 (10:23→20:44)
[2018-01-23] MEDS: PANTOPRAZOLE 40 MG/10 ML VIAL IVP SCH (10:27)
[2018-01-23] MEDS: ONDANSETRON 4 MG/2 ML VIAL IVP PRN ×2 (12:21→18:51)
[2018-01-23 17:19] LABS: Glucose,Whole Blood 135 mg/dL (75-99)
[2018-01-23 20:45] LABS: Glucose,Whole Blood 132 mg/dL (75-99)
--- NOTE | 2018-01-23 22:22 | P.HPIM ---
History of Present Illness H&P Date: 01/23/18 Chief Complaint: recurrent partial small bowel obstruction. This is a 63-year-old female one of Dr. Lopez with a previous medical history significant for stage II bladder cancer that was diagnosed back in May 2017 after she had a cystoscopy and ended up having tumor removal with Dr. 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 pending hospice and the patient was transferred into our hospital today and the we will meet with the family and we will consult hospice at this point if that with the patient and the family did wish. Review of Systems Constitutional: Reports anorexia, Reports chronic headaches, Reports chronic pain, Reports fatigue, Reports weakness Eyes: denies blurred vision, denies bulging eye, denies decreased vision Ears, nose, mouth and throat: Reports sore throat, Denies dysphagia Cardiovascular: Denies chest pain, Denies decreased exercise tolerance, Denies dyspnea on exertion, Denies rapid heart beat, Denies shortness of breath Respiratory: Denies congestion, Denies cough with sputum, Denies home oxygen, Denies sleep apnea, Denies snoring, Denies wheezing Gastrointestinal: Reports abdominal pain, Reports bloating, Reports dyspepsia, Reports indigestion, Reports nausea, Reports vomiting, Denies melena Genitourinary: Reports as per HPI Musculoskeletal: Reports gait dysfunction, Reports muscle weakness Musculoskeletal: bilateral: ankle swelling, absent: ankle pain, ankle stiffness , elbow pain, elbow stiffness, elbow swelling, foot pain, foot stiffness, foot swelling, hand pain, hand stiffness, hand swelling, hip pain, hip stiffness, hip swelling, knee pain, knee stiffness, knee swelling, shoulder pain, shoulder stiffness, shoulder swelling, wrist pain, wrist stiffness, wrist swelling Integumentary: Denies pruritus, Denies rash Neurological: Reports weakness, Denies numbness Psychiatric: Reports anxiety Endocrine: Denies fatigue, Denies weight change Past Medical History Past Medical History: Cancer, Chest Pain / Angina, CVA/TIA, Diabetes Mellitus, Deep Vein Thrombosis (DVT), GERD/Reflux, Hyperlipidemia, Osteoarthritis (OA), Thyroid Disorder Additional Past Medical History / Comment(s): BACK PAIN, Bladder Cancer Stage II History of Any Multi-Drug Resistant Organisms: MRSA, Other MDRO Date of last positivie culture/infection: 2009 MDRO Source:: BACK Past Surgical History: Appendectomy, Bladder Surgery, Cholecystectomy, Hysterectomy, Joint Replacement Additional Past Surgical History / Comment(s): BACK SURGERY, THYROID SURGERY, NAGI HIP SURGERY, BOWEL SURGERY WITH COLOSTOMY AND REVERSAL, history of perforated bowel status post expiratory laparotomy with partial colectomy and colostomy placement and reversal, bilateral cataract surgery, total abdominal instructed him bilateral sopping go for nephrectomy, bilateral total hip arthroplasty, thyroidectomy, cholecystectomy, Past Anesthesia/Blood Transfusion Reactions: No Reported Reaction Past Psychological History: No Psychological Hx Reported Smoking Status: Former smoker Past Alcohol Use History: None Reported Past Drug Use History: None Reported - Past Family History Mother Family Medical History: Coronary Artery Disease (CAD), Diabetes Mellitus Additional Family Medical History / Comment(s): Heart issues Father Family Medical History: Diabetes Mellitus, Myocardial Infarction ([place]) Additional Family Medical History / Comment(s): of heart disease Brother(s) Family Medical History: Coronary Artery Disease (CAD) Sister(s) Family Medical History: Cancer Son(s) Family Medical History: No Reported History Daughter(s) Family Medical History: No Reported History Medications and Allergies Home Medications Medication Instructions Recorded Confirmed Type Amitriptyline HCl [Elavil] 100 mg PO HS 07/17/15 01/23/18 History Insulin Glargine [Lantus] 36 unit SQ HS 07/17/15 01/23/18 History Cholecalciferol [Vitamin D3] 1,000 unit PO HS 08/08/17 01/23/18 History Gabapentin [Neurontin] 200 mg PO Q8H 08/08/17 01/23/18 History Atorvastatin [Lipitor] 10 mg PO HS 01/23/18 01/23/18 History Enoxaparin [Lovenox] 40 mg SQ DAILY 01/23/18 01/23/18 History Famotidine [Pepcid] 20 mg PO DAILY 01/23/18 01/23/18 History Levothyroxine Sodium [Synthroid] 25 mcg PO DAILY 01/23/18 01/23/18 History Sodium Bicarbonate Tab 650 mg PO BID 01/23/18 01/23/18 History Venlafaxine HCl ER [Effexor Xr] 37.5 mg PO DAILY 01/23/18 01/23/18 History Allergies Allergy/AdvReac Type Severity Reaction Status Date / Time adhesive tape Allergy Rash/Hives Verified 01/23/18 13:44 Physical Exam Vitals: Vital Signs Temp Pulse Resp BP Pulse Ox 01/23/18 03:53 97.9 F 97 18 140/75 93 L 01/23/18 00:45 98.7 F 96 20 130/68 96 Intake and Output 01/22/18 01/23/18 01/23/18 22:59 06:59 14:59 Output Total 200 Balance -200 Output: Urine 200 Other: # Voids 1 Weight 106.5 kg - Constitutional General appearance: average body habitus, mild distress - EENT Eyes: EOMI, PERRLA, no ptosis, no scleral icterus, normal appearance ENT: NA/AT, other (NG tube in place) Ears: bilateral: normal - Neck Neck: no lymphadenopathy, normal ROM, no rigidity, no stridor Carotids: bilateral: upstroke normal - Respiratory Respiratory: bilateral: diminished, negative: dullness, rales, rhonchi, wheezing , prolonged expiration - Cardiovascular Rhythm: regular Heart sounds: normal: S1, S2 Abnormal Heart Sounds: systolic murmur - Gastrointestinal General gastrointestinal: distended, hyperactive bowel sounds, soft (there is urostomy with 2 large fistulas draining greenish material.), tenderness - Integumentary Integumentary: normal - Musculoskeletal Musculoskeletal: generalized weakness - Psychiatric Psychiatric: A&O x's 3, appropriate affect, intact judgment & insight Results Labs: Abnormal Lab Results - Last 24 Hours (Table) 01/23/18 Range/Units 06:09 POC Glucose (mg/dL) 153 H (75-99) mg/dL Thrombosis Risk Factor Assmnt - DVT/VTE Prophylaxis DVT/VTE Prophylaxis: Pharmacologic Prophylaxis ordered, Mechanical Prophylaxis ordered - Choose All That Apply Any of the Below Risk Factors Present?: Yes Each Factor Represents 1 point: Medical pt on bed rest, Obesity (BMI >25), Swollen legs (current) Other Risk Factors: Yes Each Risk Factor Represents 2 Points: Age 61-74 years, Patient confined to bed Each Risk Factor Represents 3 Points: History of DVT/PE Other congenital or acquired thrombophilia - If yes, enter type in comment: No Thrombosis Risk Factor Assessment Total Risk Factor Score: 10 Thrombosis Risk Factor Assessment Level: High Risk Assessment and Plan Assessment: Assessment and plan: 1. Recurrent partial small bowel obstruction. we will continue with IVF and NGT and will continue with current pain management along with zofran 4 mg IVP Q4 h as needed. 2. 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 3. Diabetes mellitus type 2. Continue patient on SSI as needed. 4. Hyperlipidemia. off statin since patient is NPO. 5. DVT of the right lower extremity. on Lovenox SQ. 6. History of TIA/CVA. Stable at this time. 9. Spondylosis of the lumbar spine. stable. 10. Peripheral neuropathy. stable. 11. DVT prophylaxis. Currently on Lovenox 12. GI prophylaxis. Continue Protonix 40 mg IVP daily. 13. Admit to inpatient. 14. Estimated length of stay 2 midnights. 15. await family to consult Hospice.
[2018-01-23 23:09] LABS: Anisocytosis Moderate; Basophils # (A) 0.1 k/uL (0-0.2); Basophils % (A) 1 %; Eosinophils # (A) 0.2 k/uL (0-0.7); Eosinophils % (A) 1 %; HCT 32.5 % (34.0-46.0); Hypochromasia Moderate; Lymphocytes # (A) 2.9 k/uL (1.0-4.8); Lymphocytes % (A) 22 %; MCHC 30.8 g/dL (31.0-37.0); MCV 100.7 fL (80.0-100.0); Macrocytosis Moderate; Mean Platelet Volume 7.5; Monocytes # (A) 0.4 k/uL (0-1.0); Monocytes % (A) 3 %; Neutrophils # (A) 9.4 k/uL (1.3-7.7); Neutrophils % (A) 72 %; Platelet Count 126 k/uL (150-450); Poikilocytosis Moderate; RBC 3.23 m/uL (3.80-5.40); RDW 21.4 % (11.5-15.5); WBC 13.1 k/uL (3.8-10.6)
--- NOTE | 2018-01-23 23:18 | XR ---
EXAMINATION TYPE: XR abdomen 1V DATE OF EXAM: 01/23/2018 COMPARISON: NONE HISTORY: Small bowel obstruction. Pain. TECHNIQUE: 2 views supine FINDINGS: There is some distended small bowel in the mid abdomen with gas and fluid. There is bilater al hip prosthesis. There is multilevel lumbar spine surgery with laminectomy defect. I see no sign of free air. There are clips from cholecystectomy. There is a 2 over the epigastrium. IMPRESSION: Dilated loop of small bowel in the mid abdomen suggestive of mechanical obstruction or si gnificant ileus. No free air.
[2018-01-23 23:19] LABS: Albumin 2.6 g/dL (3.5-5.0); Magnesium 1.5 mg/dL (1.6-2.3); Potassium 3.6 mmol/L (3.5-5.1); Total Bilirubin 0.3 mg/dL (0.2-1.3); Total Protein 7.4 g/dL (6.3-8.2)
[2018-01-24] MEDS: ONDANSETRON 4 MG/2 ML VIAL IVP PRN ×3 (05:22→21:06)
[2018-01-24] MEDS: SODIUM CHLORIDE 0.9% 1,000 ML IV SCH ×3 (05:29→20:22)
[2018-01-24 06:01] LABS: Glucose,Whole Blood 119 mg/dL (75-99)
[2018-01-24] MEDS: INSULIN ASPART 100 UNIT/ML 1 ML 10 ML VIAL SQ SCH ×4 (06:10→20:57)
[2018-01-24 07:40] LABS: Albumin 2.6 g/dL (3.5-5.0); Magnesium 1.4 mg/dL (1.6-2.3); Potassium 3.5 mmol/L (3.5-5.1); Total Bilirubin 0.3 mg/dL (0.2-1.3); Total Protein 7.5 g/dL (6.3-8.2)
[2018-01-24 08:02] LABS: Anisocytosis Moderate; Basophils # (A) 0.1 k/uL (0-0.2); Basophils % (A) 1 %; Eosinophils # (A) 0.2 k/uL (0-0.7); Eosinophils % (A) 1 %; HCT 30.2 % (34.0-46.0); HGB 9.4 gm/dL (11.4-16.0); Hypochromasia Marked; Lymphocytes # (A) 2.1 k/uL (1.0-4.8); Lymphocytes % (A) 17 %; MCH 30.9 pg (25.0-35.0); MCHC 31.2 g/dL (31.0-37.0); MCV 99.1 fL (80.0-100.0); Macrocytosis Moderate; Mean Platelet Volume 8.6; Monocytes # (A) 0.4 k/uL (0-1.0); Monocytes % (A) 3 %; Neutrophils # (A) 9.4 k/uL (1.3-7.7); Neutrophils % (A) 77 %; Poikilocytosis Moderate; RBC 3.05 m/uL (3.80-5.40); RDW 22.1 % (11.5-15.5); WBC 12.2 k/uL (3.8-10.6)
[2018-01-24] MEDS: ENOXAPARIN 40 MG/0.4 ML SYRINGE SQ SCH (08:58)
[2018-01-24] MEDS: PANTOPRAZOLE 40 MG/10 ML VIAL IVP SCH (08:58)
[2018-01-24 09:36] LABS: Rouleaux Present
[2018-01-24 09:37] LABS: Polychromasia Present; Toxic Granulation Present
[2018-01-24 09:38] LABS: Platelet Count 98 k/uL (150-450)
[2018-01-24 11:15] VITALS: BMI 33.4
[2018-01-24 11:37] LABS: Glucose,Whole Blood 129 mg/dL (75-99)
[2018-01-24] MEDS: MORPHINE SULFATE 2 MG/ML SYRINGE IVP PRN ×2 (12:18→22:01)
[2018-01-24] MEDS: LORazepam 2 MG/ML INJ IV PRN ×2 (13:46→22:54)
--- NOTE | 2018-01-24 14:33 | P.PN ---
Subjective Progress Note Date: 01/24/18 This is a 63-year-old female one of Dr. Lopez with a previous medical history significant for stage II bladder cancer that was diagnosed back in May 2017 after she had a cystoscopy and ended up having tumor removal with Dr. 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 that was complicated by MDRO and stage 4 sacral ulcer and stage 3 left heel ulcer and the patient was recently at the [facility] in [place] I did receive a call from her daughter and her son yesterday stating that the patient has been there for quite sometimes and apparently there no more intervention can be done for their mother and they elected to transfer her mother from [facility] in [place] to [facility] pending hospice and the patient was transferred into our hospital today and the we will meet with the family and we will consult hospice at this point if that with the patient and the family did wish. 01/24: Patient is awake. Family thinks she is a little more alert today from yesterday. She does have NG tube draining dark brown fluid. Long discussion with the patient's family at the bedside and they are asking for consult with Dr. Mccoy. We will also ask for hospice to evaluate the patient and provide information about hospice. White count is 12.2, hemoglobin 9.4, platelet count 98, sodium 154, chloride 126, CO2 21, BUN 24 and creatinine 1.56. Blood sugars are 119-129, albumin 2.6, C. difficile toxin was negative. Magnesium is 1.4 and will be replaced, alkaline phosphatase 159. Review of Systems Constitutional: Reports anorexia, Reports chronic headaches, Reports chronic pain, Reports fatigue, Reports weakness Eyes: denies blurred vision, denies bulging eye, denies decreased vision Ears, nose, mouth and throat: Reports sore throat, Denies dysphagia Cardiovascular: Denies chest pain, Denies decreased exercise tolerance, Denies dyspnea on exertion, Denies rapid heart beat, Denies shortness of breath Respiratory: Denies congestion, Denies cough with sputum, Denies home oxygen, Denies sleep apnea, Denies snoring, Denies wheezing Gastrointestinal: Reports abdominal pain, Reports bloating, Reports dyspepsia, Reports indigestion, Reports nausea, Reports vomiting, Denies melena Genitourinary: Reports as per HPI Musculoskeletal: Reports gait dysfunction, Reports muscle weakness Musculoskeletal: bilateral: ankle swelling, absent: ankle pain, ankle stiffness , elbow pain, elbow stiffness, elbow swelling, foot pain, foot stiffness, foot swelling, hand pain, hand stiffness, hand swelling, hip pain, hip stiffness, hip swelling, knee pain, knee stiffness, knee swelling, shoulder pain, shoulder stiffness, shoulder swelling, wrist pain, wrist stiffness, wrist swelling, complains of gait disturbance Integumentary: Denies pruritus, Denies rash Neurological: Reports weakness, Denies numbness Psychiatric: Reports anxiety Endocrine: Denies fatigue, Denies weight change Objective - Vital Signs Vital signs: Vital Signs Temp 98.3 F 01/24/18 04:00 Pulse 98 01/24/18 04:00 Resp 16 01/24/18 04:00 BP 128/75 01/24/18 04:00 Pulse Ox 92 L 01/24/18 04:00 Intake & Output 01/23/18 01/24/18 01/24/18 18:59 06:59 18:59 Intake Total 1800 Output Total 1900 250 500 Balance -1900 -250 1300 Weight 105.6 kg Intake: Intake, IV Titration 1800 Amount Sodium Chloride 0.9% 1, 1800 000 ml @ 150 mls/hr IV . Q6H40M [facility] Rx#:[id number] Oral 0 Output: Gastric Drainage 800 200 Urine 1100 200 300 Stool 50 - Exam General appearance: average body habitus, no distress - EENT Eyes: EOMI, PERRLA, no ptosis, no scleral icterus, normal appearance ENT: NA/AT, other (NG tube in place with dark brown return) Ears: bilateral: normal - Neck Neck: no lymphadenopathy, normal ROM, no rigidity, no stridor Carotids: bilateral: upstroke normal - Respiratory Respiratory: bilateral: diminished, negative: dullness, rales, rhonchi, wheezing , prolonged expiration - Cardiovascular Rhythm: regular Heart sounds: normal: S1, S2 Abnormal Heart Sounds: systolic murmur - Gastrointestinal General gastrointestinal: distended, hyperactive bowel sounds, soft (there is urostomy with 2 large fistulas draining greenish material.), tenderness - Integumentary Integumentary: normal - Musculoskeletal Musculoskeletal: generalized weakness - Psychiatric Psychiatric: A&O x's 3, appropriate affect, intact judgment & insight - Labs CBC & Chem 7: 01/24/18 06:00 01/24/18 06:00 Labs: Abnormal Lab Results - Last 24 Hours (Table) 01/23/18 01/23/18 01/23/18 Range/Units 16:59 20:43 22:47 WBC 13.1 H (3.8-10.6) k/uL RBC 3.23 L (3.80-5.40) m/uL Hgb 10.0 L (11.4-16.0) gm/dL Hct 32.5 L (34.0-46.0) % MCV 100.7 H (80.0-100.0) fL MCHC 30.8 L (31.0-37.0) g/dL RDW 21.4 H (11.5-15.5) % Plt Count 126 L (150-450) k/uL Neutrophils # 9.4 H (1.3-7.7) k/uL Sodium (137-145) mmol/L Chloride (98-107) mmol/L Carbon Dioxide (22-30) mmol/L BUN (7-17) mg/dL Creatinine (0.52-1.04) mg/dL Glucose (74-99) mg/dL POC Glucose (mg/dL) 135 H 132 H (75-99) mg/dL Calcium (8.4-10.2) mg/dL Magnesium (1.6-2.3) mg/dL Alkaline Phosphatase (38-126) U/L Albumin (3.5-5.0) g/dL 01/23/18 01/24/18 01/24/18 Range/Units 22:47 06:00 06:00 WBC 12.2 H (3.8-10.6) k/uL RBC 3.05 L (3.80-5.40) m/uL Hgb 9.4 L (11.4-16.0) gm/dL Hct 30.2 L (34.0-46.0) % MCV (80.0-100.0) fL MCHC (31.0-37.0) g/dL RDW 22.1 H (11.5-15.5) % Plt Count 98 L (150-450) k/uL Neutrophils # 9.4 H (1.3-7.7) k/uL Sodium 153 H 154 H (137-145) mmol/L Chloride 124 H 126 H (98-107) mmol/L Carbon Dioxide 21 L 21 L (22-30) mmol/L BUN 26 H 24 H (7-17) mg/dL Creatinine 1.48 H 1.56 H (0.52-1.04) mg/dL Glucose 131 H 127 H (74-99) mg/dL POC Glucose (mg/dL) (75-99) mg/dL Calcium 8.0 L 8.0 L (8.4-10.2) mg/dL Magnesium 1.5 L 1.4 L (1.6-2.3) mg/dL Alkaline Phosphatase 152 H 159 H (38-126) U/L Albumin 2.6 L 2.6 L (3.5-5.0) g/dL 01/24/18 Range/Units 06:00 WBC (3.8-10.6) k/uL RBC (3.80-5.40) m/uL Hgb (11.4-16.0) gm/dL Hct (34.0-46.0) % MCV (80.0-100.0) fL MCHC (31.0-37.0) g/dL RDW (11.5-15.5) % Plt Count (150-450) k/uL Neutrophils # (1.3-7.7) k/uL Sodium (137-145) mmol/L Chloride (98-107) mmol/L Carbon Dioxide (22-30) mmol/L BUN (7-17) mg/dL Creatinine (0.52-1.04) mg/dL Glucose (74-99) mg/dL POC Glucose (mg/dL) 119 H (75-99) mg/dL Calcium (8.4-10.2) mg/dL Magnesium (1.6-2.3) mg/dL Alkaline Phosphatase (38-126) U/L Albumin (3.5-5.0) g/dL Assessment and Plan Plan: 1. Recurrent partial small bowel obstruction. we will continue with IVF and NGT and will continue with current pain management along with zofran 4 mg IVP Q4 h as needed. 2. 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 Consult with oncology. 3. Diabetes mellitus type 2. Continue patient on SSI as needed. 4. Hyperlipidemia. off statin since patient is NPO. 5. DVT of the right lower extremity. on Lovenox SQ. 6. History of TIA/CVA. Stable at this time. 9. Spondylosis of the lumbar spine. stable. 10. Peripheral neuropathy. stable. 11. DVT prophylaxis. Currently on Lovenox 12. GI prophylaxis. Continue Protonix 40 mg IVP daily. Discharge plan: To be determined. Consult with hospice. Impression and plan of care have been directed as dictated by the signing physician. Philly Farley nurse practitioner acting as scribe for signing physician.
--- NOTE | 2018-01-24 16:26 | P.CONS ---
History of Present Illness - Reason for Consult Consult date: 01/24/18 bladder cancer, bowel obstruction Requesting physician: Philipp Montelongo - Chief Complaint transfer from critical outpatient care facility - History of Present Illness Ms. Rodríguez is a very pleasant female pt of Dr. Estrella who presented with gross hematuria in early 2018, she was evaluated by Dr. Baeza, had Cystoscopy 05/11/17 revealing a sesile tumor in left anterolateral bladder wall, TURBT revealed high grade papillary urothelial carcinoma with extensive involvement of muscularis propria, staging CT AP was initially unremarkable, but study done at [facility] on 05/19/17 revealed enlarged left para-aortic lymphadenopathy (1.9X1.6cm). She was seen by Dr. Navarrete, neoadjuvant chemotherapy advised. She was evaluated by Dr. Rosado and started on Cisplatinum/Gemzar. She resides in [place] so she transferred her care here for cycle #2. Chronic low back pain was evaluated with MRI of Lumbar spine at [facility] on 05/17/17, degenerative disc disease. Pt completed 4 cycles of chemo and was sent to surgery. Since that time pt has had multiple abd surgeries, including skin graph, fistula formation with percutaneous drainage, urostomy and colostomy creation. She was hospitalized and in a selective acute outpatient facility for about 3 months now. Last week pt started vomiting, now being treated medically for ileus, NG tube in place. Pt states discomfort from the NG tube, oral irritation, feeling occasional nausea, profound thirst and lower abd discomfort. No fevers, chest pain, palpitations, LIAM. Review of Systems See HPI Past Medical History Past Medical History: Cancer, Chest Pain / Angina, CVA/TIA, Diabetes Mellitus, Deep Vein Thrombosis (DVT), GERD/Reflux, Hyperlipidemia, Osteoarthritis (OA), Thyroid Disorder Additional Past Medical History / Comment(s): BACK PAIN, Bladder Cancer Stage II History of Any Multi-Drug Resistant Organisms: MRSA Year Discovered:: 07/19/09 MDRO Source:: Back Past Surgical History: Appendectomy, Bladder Surgery, Cholecystectomy, Hysterectomy, Joint Replacement Additional Past Surgical History / Comment(s): BACK SURGERY, THYROID SURGERY, NAGI HIP SURGERY, BOWEL SURGERY WITH COLOSTOMY AND REVERSAL, history of perforated bowel status post expiratory laparotomy with partial colectomy and colostomy placement and reversal, bilateral cataract surgery, total abdominal instructed him bilateral sopping go for nephrectomy, bilateral total hip arthroplasty, thyroidectomy, cholecystectomy, Past Anesthesia/Blood Transfusion Reactions: No Reported Reaction Past Psychological History: No Psychological Hx Reported Smoking Status: Former smoker Past Alcohol Use History: None Reported Past Drug Use History: None Reported - Past Family History Mother Family Medical History: Coronary Artery Disease (CAD), Diabetes Mellitus Additional Family Medical History / Comment(s): Heart issues Father Family Medical History: Diabetes Mellitus, Myocardial Infarction (SC) Additional Family Medical History / Comment(s): of heart disease Brother(s) Family Medical History: Coronary Artery Disease (CAD) Sister(s) Family Medical History: Cancer Son(s) Family Medical History: No Reported History Daughter(s) Family Medical History: No Reported History Medications and Allergies Home Medications Medication Instructions Recorded Confirmed Type Amitriptyline HCl [Elavil] 100 mg PO HS 07/17/15 01/23/18 History Insulin Glargine [Lantus] 36 unit SQ HS 07/17/15 01/23/18 History Cholecalciferol [Vitamin D3] 1,000 unit PO HS 08/08/17 01/23/18 History Gabapentin [Neurontin] 200 mg PO Q8H 08/08/17 01/23/18 History Atorvastatin [Lipitor] 10 mg PO HS 01/23/18 01/23/18 History Enoxaparin [Lovenox] 40 mg SQ DAILY 01/23/18 01/23/18 History Famotidine [Pepcid] 20 mg PO DAILY 01/23/18 01/23/18 History Levothyroxine Sodium [Synthroid] 25 mcg PO DAILY 01/23/18 01/23/18 History Sodium Bicarbonate Tab 650 mg PO BID 01/23/18 01/23/18 History Venlafaxine HCl ER [Effexor Xr] 37.5 mg PO DAILY 01/23/18 01/23/18 History Allergies Allergy/AdvReac Type Severity Reaction Status Date / Time adhesive tape Allergy Rash/Hives Verified 01/23/18 13:44 Physical Exam Vitals: Vital Signs Temp Pulse Resp BP BP Pulse Ox 01/24/18 11:55 97.4 F L 96 20 136/77 90 L 01/24/18 08:00 97.4 F L 96 20 136/77 90 L 01/24/18 04:00 98.3 F 98 16 128/75 92 L 01/24/18 03:15 16 01/24/18 00:00 97 16 01/23/18 23:47 97.7 F 97 16 139/69 92 L 01/23/18 20:00 97.1 F L 90 20 146/77 90 L 01/23/18 16:00 98.1 F 94 18 131/69 90 L Intake and Output 01/24/18 01/24/18 01/24/18 06:59 14:59 22:59 Intake Total 3000 Output Total 200 1000 Balance -200 2000 Intake: Intake, IV Titration 3000 Amount Sodium Chloride 0.9% 1, 3000 000 ml @ 150 mls/hr IV . Q6H40M [facility] Rx#:[id number] Oral 0 Output: Gastric Drainage 700 Urine 200 300 Other: Weight 105.6 kg 105.6 kg - Constitutional General appearance: cooperative, mild distress, obese - EENT Eyes: anicteric sclerae, EOMI ENT: hearing grossly normal - Neck Neck: no lymphadenopathy - Respiratory Respiratory: bilateral: CTA, diminished - Cardiovascular Rhythm: regular Heart sounds: normal: S1, S2 Abnormal Heart Sounds: no systolic murmur, no diastolic murmur, no rub, no S3 Gallop, no S4 Gallop, no click, no other leg Peripheral Edema: bilateral: None - Gastrointestinal large pannus, RLQ urostomy, 2 additional ostomy collection devices with light green fluid noted, midline skin graft General gastrointestinal: absent bowel sounds - Integumentary right lateral thigh skin graft, no s/s infection - Neurologic no gross motor deficits noted - Musculoskeletal Musculoskeletal: generalized weakness - Psychiatric Pt is alert, oriented to self, place and those around her, she is tyring to figure out what is happening and why Results CBC & Chem 7: 01/24/18 06:00 01/24/18 06:00 Labs: Abnormal Lab Results - Last 24 Hours (Table) 01/23/18 01/23/18 01/23/18 Range/Units 16:59 20:43 22:47 WBC 13.1 H (3.8-10.6) k/uL RBC 3.23 L (3.80-5.40) m/uL Hgb 10.0 L (11.4-16.0) gm/dL Hct 32.5 L (34.0-46.0) % MCV 100.7 H (80.0-100.0) fL MCHC 30.8 L (31.0-37.0) g/dL RDW 21.4 H (11.5-15.5) % Plt Count 126 L (150-450) k/uL Neutrophils # 9.4 H (1.3-7.7) k/uL Sodium (137-145) mmol/L Chloride (98-107) mmol/L Carbon Dioxide (22-30) mmol/L BUN (7-17) mg/dL Creatinine (0.52-1.04) mg/dL Glucose (74-99) mg/dL POC Glucose (mg/dL) 135 H 132 H (75-99) mg/dL Calcium (8.4-10.2) mg/dL Magnesium (1.6-2.3) mg/dL Alkaline Phosphatase (38-126) U/L Albumin (3.5-5.0) g/dL 01/23/18 01/24/18 01/24/18 Range/Units 22:47 06:00 06:00 WBC 12.2 H (3.8-10.6) k/uL RBC 3.05 L (3.80-5.40) m/uL Hgb 9.4 L (11.4-16.0) gm/dL Hct 30.2 L (34.0-46.0) % MCV (80.0-100.0) fL MCHC (31.0-37.0) g/dL RDW 22.1 H (11.5-15.5) % Plt Count 98 L (150-450) k/uL Neutrophils # 9.4 H (1.3-7.7) k/uL Sodium 153 H 154 H (137-145) mmol/L Chloride 124 H 126 H (98-107) mmol/L Carbon Dioxide 21 L 21 L (22-30) mmol/L BUN 26 H 24 H (7-17) mg/dL Creatinine 1.48 H 1.56 H (0.52-1.04) mg/dL Glucose 131 H 127 H (74-99) mg/dL POC Glucose (mg/dL) (75-99) mg/dL Calcium 8.0 L 8.0 L (8.4-10.2) mg/dL Magnesium 1.5 L 1.4 L (1.6-2.3) mg/dL Alkaline Phosphatase 152 H 159 H (38-126) U/L Albumin 2.6 L 2.6 L (3.5-5.0) g/dL 01/24/18 01/24/18 Range/Units 06:00 11:30 WBC (3.8-10.6) k/uL RBC (3.80-5.40) m/uL Hgb (11.4-16.0) gm/dL Hct (34.0-46.0) % MCV (80.0-100.0) fL MCHC (31.0-37.0) g/dL RDW (11.5-15.5) % Plt Count (150-450) k/uL Neutrophils # (1.3-7.7) k/uL Sodium (137-145) mmol/L Chloride (98-107) mmol/L Carbon Dioxide (22-30) mmol/L BUN (7-17) mg/dL Creatinine (0.52-1.04) mg/dL Glucose (74-99) mg/dL POC Glucose (mg/dL) 119 H 129 H (75-99) mg/dL Calcium (8.4-10.2) mg/dL Magnesium (1.6-2.3) mg/dL Alkaline Phosphatase (38-126) U/L Albumin (3.5-5.0) g/dL Abdominal x-ray: report reviewed Assessment and Plan (1) Ileus Narrative/Plan: Being treated medically with NG placement and bowel rest Current Visit: Yes Status: Acute Priority: High Code(s): K56.7 - ILEUS, UNSPECIFIED SNOMED Code(s): 779885025 (2) Primary bladder adenocarcinoma Narrative/Plan: Pt was supposed to return to see Dr. Estrella after surgery in Sep post neoadjuvant chemo. Unfortunately pt has had numerous complications that have not allowed her to f/u in regards to her malignancy, previously diagnosed. I do not have any recent scans or path reports available at this time to determine if her malignancy is considered metastatic now. I do not have surgical/f/u reports to explain the complications she has had post operatively. From the daughters description the pt bowels were in very poor shape-found at the time of surgery-and pt has not healed well post op. Current Visit: Yes Status: Chronic Priority: Medium Code(s): C67.9 - MALIGNANT NEOPLASM OF BLADDER, UNSPECIFIED SNOMED Code(s): 803625788 (3) Leukocytosis Narrative/Plan: Mild, neutrophilia. Pt is on abx Current Visit: Yes Status: Acute Priority: Medium Code(s): D72.829 - ELEVATED WHITE BLOOD CELL COUNT, UNSPECIFIED SNOMED Code(s): 914458626 (4) Bicytopenia Narrative/Plan: Mild anemia and thrombocytopenia r/t poor nutritional status, acute illness with history of chemo and currently, untreated malignancy. No transfusions required at this time Current Visit: Yes Status: Acute Priority: Medium Code(s): D75.89 - OTHER SPECIFIED DISEASES OF BLOOD AND BLOOD-FORMING ORGANS SNOMED Code(s): 763870763 Plan: The pt, family and I had a long discussion about prognosis. Even without pathology and scans it is very apparent that pt condition is worsening-lack of healing post operatively, fistula and now ileus. Now, if this is from cancer I cannot say as she was treated neoadjuvantly with curative intent 5 months ago but, Pt daughter did mention an "involved ovary" post operatively. Pt and family had questions about palliative care/hospice at home and numerous other questions all of which were answered to the best of my ability. Hospice is meeting with them later today. Agree with comfort/hospice Time with Patient: Greater than 30 (40 minutes spent, >50% counseling and coordinating care)
[2018-01-24 16:29] LABS: Glucose,Whole Blood 113 mg/dL (75-99)
[2018-01-24] MEDS: MAGNESIUM SULFATE-D5W PMX 1 GM in DEXTROSE/WATER 1 100ML.BAG IVPB SCH ×2 (17:01→18:00)
[2018-01-24] MEDS: MAG HYDROX/AL HYDROX/SIMETH 30 ML, diphenhydrAMINE ELIXIR 75 MG, LIDOCAINE VISCOUS 30 ML PO SCH ×9 (17:05→21:59)
[2018-01-24 20:53] LABS: Glucose,Whole Blood 123 mg/dL (75-99)
[2018-01-25] MEDS: SODIUM CHLORIDE 0.9% 1,000 ML IV SCH (03:39)
[2018-01-25] MEDS: MORPHINE SULFATE 2 MG/ML SYRINGE IVP PRN ×2 (04:19→09:45)
[2018-01-25 06:03] LABS: Glucose,Whole Blood 114 mg/dL (75-99)
[2018-01-25] MEDS: INSULIN ASPART 100 UNIT/ML 1 ML 10 ML VIAL SQ SCH (06:22)
[2018-01-25] MEDS ORDERED: DEXTROSE 5%-0.45% NACL 1,000 ML IV SCH (06:30)
[2018-01-25 07:38] LABS: Anisocytosis Moderate; Basophils # (A) 0.1 k/uL (0-0.2); Basophils % (A) 0 %; Eosinophils # (A) 0.1 k/uL (0-0.7); Eosinophils % (A) 1 %; HCT 31.8 % (34.0-46.0); HGB 9.3 gm/dL (11.4-16.0); Hypochromasia Marked; Lymphocytes # (A) 3.5 k/uL (1.0-4.8); Lymphocytes % (A) 26 %; MCHC 29.3 g/dL (31.0-37.0); Macrocytosis Moderate; Mean Platelet Volume 7.7; Monocytes # (A) 0.3 k/uL (0-1.0); Monocytes % (A) 3 %; Neutrophils # (A) 9.6 k/uL (1.3-7.7); Neutrophils % (A) 70 %; Poikilocytosis Moderate; RBC 3.21 m/uL (3.80-5.40); RDW 22.2 % (11.5-15.5); WBC 13.7 k/uL (3.8-10.6)
[2018-01-25 07:48] LABS: Albumin 2.6 g/dL (3.5-5.0); Calcium 8.4 mg/dL (8.4-10.2); Magnesium 1.9 mg/dL (1.6-2.3); Potassium 3.5 mmol/L (3.5-5.1); Total Bilirubin 0.3 mg/dL (0.2-1.3); Total Protein 7.5 g/dL (6.3-8.2)
[2018-01-25 07:50] LABS: Platelet Count 97 k/uL (150-450)
[2018-01-25] MEDS: ENOXAPARIN 40 MG/0.4 ML SYRINGE SQ SCH (08:25)
[2018-01-25] MEDS: MAG HYDROX/AL HYDROX/SIMETH 30 ML, diphenhydrAMINE ELIXIR 75 MG, LIDOCAINE VISCOUS 30 ML PO SCH ×3 (08:26)
[2018-01-25] MEDS: PANTOPRAZOLE 40 MG/10 ML VIAL IVP SCH (08:26)
[2018-01-25 09:12] VITALS: RESP 20
[2018-01-25 11:49] LABS: Glucose,Whole Blood 169 mg/dL (75-99)
[2018-01-25 12:07] VITALS: BP 130/83; PULSE 112; TEMP 97.8
[2018-01-25] MEDS: MAGNESIUM SULFATE-D5W PMX 1 GM in DEXTROSE/WATER 1 100ML.BAG IVPB SCH (12:35)
[2018-01-25] MEDS: LORazepam 2 MG/ML INJ IV PRN (13:37)
--- NOTE | 2018-01-25 14:46 | P.PN ---
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 that was complicated by MDRO and stage 4 sacral ulcer and stage 3 left heel ulcer and the patient was recently at the [facility] in [place] I did receive a call from her daughter and her son yesterday stating that the patient has been there for quite sometimes and apparently there no more intervention can be done for their mother and they elected to transfer her mother from [facility] in [place] to [facility] pending hospice and the patient was transferred into our hospital today and the we will meet with the family and we will consult hospice at this point if that with the patient and the family did wish. 01/24: Patient is awake. Family thinks she is a little more alert today from yesterday. She does have NG tube draining dark brown fluid. Long discussion with the patient's family at the bedside and they are asking for consult with Dr. Mccoy. We will also ask for hospice to evaluate the patient and provide information about hospice. White count is 12.2, hemoglobin 9.4, platelet count 98, sodium 154, chloride 126, CO2 21, BUN 24 and creatinine 1.56. Blood sugars are 119-129, albumin 2.6, C. difficile toxin was negative. Magnesium is 1.4 and will be replaced, alkaline phosphatase 159. 01/25: Patient has been seen by oncology. Family met with hospice yesterday and are asking for another meeting today. Met with patient and family today for an extended period time and they are planning to move forward with hospice. NG tube will stay in for now. Patient will be transitioned to hospice. Review of Systems Constitutional: Reports anorexia, Reports chronic headaches, Reports chronic pain, Reports fatigue, Reports weakness Eyes: denies blurred vision, denies decreased vision Ears, nose, mouth and throat: Reports sore throat, Denies dysphagia Cardiovascular: Denies chest pain, Denies decreased exercise tolerance, Denies dyspnea on exertion, Denies rapid heart beat, Denies shortness of breath Respiratory: Denies congestion, Denies cough with sputum, Denies home oxygen, Denies sleep apnea, Denies snoring, Denies wheezing Gastrointestinal: Reports abdominal pain, Reports bloating, Reports dyspepsia, Reports indigestion, Reports nausea, Reports vomiting, Denies melena Genitourinary: Reports as per HPI Musculoskeletal: Reports gait dysfunction, Reports muscle weakness Musculoskeletal: bilateral: ankle swelling, absent: ankle pain, ankle stiffness , elbow pain, elbow stiffness, elbow swelling, foot pain, foot stiffness, foot swelling, hand pain, hand stiffness, hand swelling, hip pain, hip stiffness, hip swelling, knee pain, knee stiffness, knee swelling, shoulder pain, shoulder stiffness, shoulder swelling, wrist pain, wrist stiffness, wrist swelling, complains of gait disturbance Integumentary: Denies pruritus, Denies rash Neurological: Reports weakness, Denies numbness Psychiatric: Reports anxiety Endocrine: Denies fatigue, Denies weight change Objective - Vital Signs Vital signs: Vital Signs Temp 96.9 F L 01/25/18 08:00 Pulse 104 H 01/25/18 08:00 Resp 20 01/25/18 08:00 BP 139/70 01/25/18 08:00 Pulse Ox 91 L 01/25/18 08:00 Intake & Output 01/24/18 01/25/18 01/25/18 18:59 06:59 18:59 Intake Total 3000 1200 Output Total 1000 2940 Balance 1999 -1740 Weight 105.6 kg 112 kg Intake: Intake, IV Titration 3000 1200 Amount Sodium Chloride 0.9% 1, 3000 1200 000 ml @ 150 mls/hr IV . Q6H40M [facility] Rx#:[id number] Oral 0 Output: Gastric Drainage 700 Urine 300 1240 Stool 1000 Emesis 700 - Exam General appearance: average body habitus, no distress at rest in bed - EENT Eyes: EOMI, PERRLA, no ptosis, no scleral icterus, normal appearance ENT: NA/AT, other (NG tube in place with dark green return) Ears: bilateral: normal - Neck Neck: no lymphadenopathy, normal ROM, no rigidity, no stridor Carotids: bilateral: upstroke normal - Respiratory Respiratory: bilateral: diminished, negative: dullness, rales, rhonchi, wheezing , prolonged expiration - Cardiovascular Rhythm: regular Heart sounds: normal: S1, S2 Abnormal Heart Sounds: systolic murmur - Gastrointestinal General gastrointestinal: distended, hyperactive bowel sounds, soft (there is urostomy with 2 large fistulas draining greenish material.), tenderness - Integumentary Integumentary: normal - Musculoskeletal Musculoskeletal: generalized weakness - Psychiatric Psychiatric: A&O x's 3, appropriate affect, intact judgment & insight - Labs CBC & Chem 7: 01/25/18 07:14 01/25/18 07:14 Labs: Abnormal Lab Results - Last 24 Hours (Table) 01/24/18 01/24/18 01/24/18 Range/Units 11:30 16:27 20:52 WBC (3.8-10.6) k/uL RBC (3.80-5.40) m/uL Hgb (11.4-16.0) gm/dL Hct (34.0-46.0) % MCHC (31.0-37.0) g/dL RDW (11.5-15.5) % Plt Count (150-450) k/uL Neutrophils # (1.3-7.7) k/uL Sodium (137-145) mmol/L Chloride (98-107) mmol/L Carbon Dioxide (22-30) mmol/L BUN (7-17) mg/dL Creatinine (0.52-1.04) mg/dL Glucose (74-99) mg/dL POC Glucose (mg/dL) 129 H 113 H 123 H (75-99) mg/dL Alkaline Phosphatase (38-126) U/L Albumin (3.5-5.0) g/dL 01/25/18 01/25/18 01/25/18 Range/Units 06:01 07:14 07:14 WBC 13.7 H (3.8-10.6) k/uL RBC 3.21 L (3.80-5.40) m/uL Hgb 9.3 L (11.4-16.0) gm/dL Hct 31.8 L (34.0-46.0) % MCHC 29.3 L (31.0-37.0) g/dL RDW 22.2 H (11.5-15.5) % Plt Count 97 L (150-450) k/uL Neutrophils # 9.6 H (1.3-7.7) k/uL Sodium 156 H (137-145) mmol/L Chloride 129 H (98-107) mmol/L Carbon Dioxide 20 L (22-30) mmol/L BUN 21 H (7-17) mg/dL Creatinine 1.54 H (0.52-1.04) mg/dL Glucose 132 H (74-99) mg/dL POC Glucose (mg/dL) 114 H (75-99) mg/dL Alkaline Phosphatase 162 H (38-126) U/L Albumin 2.6 L (3.5-5.0) g/dL Assessment and Plan Plan: 1. Recurrent partial small bowel obstruction. we will continue with IVF and NGT and will continue with current pain management along with zofran 4 mg IVP Q4 h as needed. 2. 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 Consult with oncology. 3. Diabetes mellitus type 2. Continue patient on SSI as needed. 4. Hyperlipidemia. off statin since patient is NPO. 5. DVT of the right lower extremity. on Lovenox SQ. 6. History of TIA/CVA. Stable at this time. 9. Spondylosis of the lumbar spine. stable. 10. Peripheral neuropathy. stable. 11. DVT prophylaxis. Currently on Lovenox 12. GI prophylaxis. Continue Protonix 40 mg IVP daily. Discharge plan: Transition to hospice. Impression and plan of care have been directed as dictated by the signing physician. Philly Farley nurse practitioner acting as scribe for signing physician.
--- NOTE | 2018-01-26 15:06 | P.DS ---
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 that was complicated by MDRO and stage 4 sacral ulcer and stage 3 left heel ulcer and the patient was recently at the [facility] in [place] I did receive a call from her daughter and her son yesterday stating that the patient has been there for quite sometimes and apparently there no more intervention can be done for their mother and they elected to transfer her mother from [facility] in [place] to [facility] pending hospice and the patient was transferred into our hospital today and the we will meet with the family and we will consult hospice at this point if that with the patient and the family did wish. 01/24: Patient is awake. Family thinks she is a little more alert today from yesterday. She does have NG tube draining dark brown fluid. Long discussion with the patient's family at the bedside and they are asking for consult with Dr. Mccoy. We will also ask for hospice to evaluate the patient and provide information about hospice. White count is 12.2, hemoglobin 9.4, platelet count 98, sodium 154, chloride 126, CO2 21, BUN 24 and creatinine 1.56. Blood sugars are 119-129, albumin 2.6, C. difficile toxin was negative. Magnesium is 1.4 and will be replaced, alkaline phosphatase 159. 01/25: Patient has been seen by oncology. Family met with hospice yesterday and are asking for another meeting today. Met with patient and family today for an extended period time and they are planning to move forward with hospice. NG tube will stay in for now. Patient will be transitioned to hospice. Discharge Diagnoses: 1. Recurrent partial small bowel obstruction. 2. 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 Diabetes mellitus type 2. 4. Hyperlipidemia. 5. DVT of the right lower extremity. 6. History of TIA/CVA. 7. Spondylosis of the lumbar spine. stable. 8. Peripheral neuropathy. Discharge plan: Transition to hospice. Impression and plan of care have been directed as dictated by the signing physician. Philly Farley nurse practitioner acting as scribe for signing physician. Patient Condition at Discharge: Undetermined Plan - Discharge Summary Discharge Rx Participant: No New Discharge Prescriptions: No Action Insulin Glargine [Lantus] 36 unit SQ HS Amitriptyline HCl [Elavil] 100 mg PO HS Cholecalciferol [Vitamin D3] 1,000 unit PO HS Atorvastatin [Lipitor] 10 mg PO HS Enoxaparin [Lovenox] 40 mg SQ DAILY Famotidine [Pepcid] 20 mg PO DAILY Levothyroxine Sodium [Synthroid] 25 mcg PO DAILY Sodium Bicarbonate Tab 650 mg PO BID Venlafaxine HCl ER [Effexor Xr] 37.5 mg PO DAILY Gabapentin [Neurontin] 200 mg PO Q8H Discharge Medication List Amitriptyline HCl [Elavil] 100 mg PO HS 07/17/15 [History] Insulin Glargine [Lantus] 36 unit SQ HS 07/17/15 [History] Cholecalciferol [Vitamin D3] 1,000 unit PO HS 08/08/17 [History] Atorvastatin [Lipitor] 10 mg PO HS 01/23/18 [History] Enoxaparin [Lovenox] 40 mg SQ DAILY 01/23/18 [History] Famotidine [Pepcid] 20 mg PO DAILY 01/23/18 [History] Levothyroxine Sodium [Synthroid] 25 mcg PO DAILY 01/23/18 [History] Sodium Bicarbonate Tab 650 mg PO BID 01/23/18 [History] Venlafaxine HCl ER [Effexor Xr] 37.5 mg PO DAILY 01/23/18 [History] Gabapentin [Neurontin] 200 mg PO Q8H 01/25/18 [History] Discharge Disposition: DC/TRNS IP HOSP W/PLND IP READ
== END 2018-01-25 14:43 | disposition short-term general hospital (02) | DRG 389 ==
LOC: 3SCARD 01-23 00:28
PROVIDERS: ADMIT Internal Medicine; ATTEND Internal Medicine
DX: K56.600 Partial intestinal obstruction, unspecified as to cause (principal); I82.401 Acute embolism and thrombosis of unspecified deep veins of right lower extremity; N36.0 Urethral fistula; C67.9 Malignant neoplasm of bladder, unspecified; D64.9 Anemia, unspecified; D69.6 Thrombocytopenia, unspecified; D72.829 Elevated white blood cell count, unspecified; E11.42 Type 2 diabetes mellitus with diabetic polyneuropathy; Z79.4 Long term (current) use of insulin; E78.5 Hyperlipidemia, unspecified; E89.0 Postprocedural hypothyroidism; K21.9 Gastro-esophageal reflux disease without esophagitis; K56.7 Ileus, unspecified; M47.816 Spondylosis without myelopathy or radiculopathy, lumbar region; Z51.5 Encounter for palliative care; Z66 Do not resuscitate; Z79.890 Hormone replacement therapy; Z82.49 Family history of ischemic heart disease and other diseases of the circulatory system; Z83.3 Family history of diabetes mellitus; Z86.73 Personal history of transient ischemic attack (TIA), and cerebral infarction without residual deficits; Z87.891 Personal history of nicotine dependence; Z90.710 Acquired absence of both cervix and uterus; Z90.79 Acquired absence of other genital organ(s); Z90.722 Acquired absence of ovaries, bilateral; Z92.21 Personal history of antineoplastic chemotherapy; Z96.643 Presence of artificial hip joint, bilateral; Z93.6 Other artificial openings of urinary tract status; Z90.6 Acquired absence of other parts of urinary tract; Z98.42 Cataract extraction status, left eye; Z98.41 Cataract extraction status, right eye; Z90.49 Acquired absence of other specified parts of digestive tract; R63.1 Polydipsia; R63.0 Anorexia; Z68.35 Body mass index [BMI] 35.0-35.9, adult; M19.90 Unspecified osteoarthritis, unspecified site; R51 Headache; R53.83 Other fatigue; R26.9 Unspecified abnormalities of gait and mobility; E83.42 Hypomagnesemia; G89.29 Other chronic pain
CPT/HCPCS: 74018; 80053; 83735; 85025; 87324

== ENCOUNTER 2018-01-25 12:59 | Inpatient (IN) | payer MEDICAID ==
[2018-01-25] MEDS ORDERED: ACETAMINOPHEN SUPPOSITORY 650 MG SUPP RECTAL PRN (13:26)
[2018-01-25] MEDS ORDERED: DEXTROSE 5%-0.45% NACL 1,000 ML IV ONE (13:26)
[2018-01-25] MEDS: MORPHINE SULFATE 2 MG/ML SYRINGE IV PRN ×2 (15:52→20:14)
[2018-01-25 17:03] LABS: Glucose,Whole Blood 154 mg/dL (75-99)
[2018-01-25] MEDS: ONDANSETRON 4 MG/2 ML VIAL IVP PRN (20:15)
[2018-01-25 21:00] LABS: Glucose,Whole Blood 158 mg/dL (75-99)
[2018-01-25] MEDS: LORazepam 2 MG/ML INJ IV PRN (23:00)
[2018-01-26] MEDS: MORPHINE SULFATE 2 MG/ML SYRINGE IV PRN ×5 (03:56→23:29)
[2018-01-26 04:14] VITALS: TEMP 98.3
[2018-01-26] MEDS: PANTOPRAZOLE 40 MG/10 ML VIAL IVP SCH (08:53)
[2018-01-26 10:30] VITALS: BMI 34.9
[2018-01-26] MEDS: ONDANSETRON 4 MG/2 ML VIAL IVP PRN (18:22)
[2018-01-26] MEDS: LORazepam 2 MG/ML INJ IV PRN (20:53)
[2018-01-26 21:07] VITALS: RESP 18
[2018-01-27 01:10] VITALS: BP 127/69
[2018-01-27] MEDS: LORazepam 2 MG/ML INJ IV PRN ×2 (03:42→10:55)
[2018-01-27 04:04] VITALS: PULSE 109
[2018-01-27] MEDS: MORPHINE SULFATE 2 MG/ML SYRINGE IV PRN ×3 (06:23→14:10)
[2018-01-27] MEDS: PANTOPRAZOLE 40 MG/10 ML VIAL IVP SCH (10:47)
[2018-01-27] MEDS ORDERED: SCOPOLAMINE 1.5MG/72HR PATCH TRANSDERM STA (11:41)
[2018-01-27] MEDS ORDERED: LORazepam 2 MG/ML INJ IV PRN (12:31)
[2018-01-27] MEDS ORDERED: LORazepam 2 MG/ML INJ IV STA (12:31)
[2018-01-27] MEDS ORDERED: MORPHINE SULFATE 2 MG/ML SYRINGE IVP STA (14:04)
--- NOTE | 2018-01-27 14:27 | P.DS ---
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 that was complicated by MDRO and stage 4 sacral ulcer and stage 3 left heel ulcer and the patient was recently at the [facility] in [place] I did receive a call from her daughter and her son yesterday stating that the patient has been there for quite sometimes and apparently there no more intervention can be done for their mother and they elected to transfer her mother from [facility] in [place] to [facility] pending hospice and the patient was transferred into our hospital today and the we will meet with the family and we will consult hospice at this point if that with the patient and the family did wish. 01/24: Patient is awake. Family thinks she is a little more alert today from yesterday. She does have NG tube draining dark brown fluid. Long discussion with the patient's family at the bedside and they are asking for consult with Dr. Mccoy. We will also ask for hospice to evaluate the patient and provide information about hospice. White count is 12.2, hemoglobin 9.4, platelet count 98, sodium 154, chloride 126, CO2 21, BUN 24 and creatinine 1.56. Blood sugars are 119-129, albumin 2.6, C. difficile toxin was negative. Magnesium is 1.4 and will be replaced, alkaline phosphatase 159. 01/25: Patient has been seen by oncology. Family met with hospice yesterday and are asking for another meeting today. Met with patient and family today for an extended period time and they are planning to move forward with hospice. NG tube will stay in for now. Patient will be transitioned to hospice. Discharge Diagnoses: 1. Recurrent partial small bowel obstruction. 2. 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 Diabetes mellitus type 2. 4. Hyperlipidemia. 5. DVT of the right lower extremity. 6. History of TIA/CVA. 7. Spondylosis of the lumbar spine. stable. 8. Peripheral neuropathy. Discharge plan: Transition to home hospice. Impression and plan of care have been directed as dictated by the signing physician. Philly Farley nurse practitioner acting as scribe for signing physician. Patient Condition at Discharge: Undetermined Plan - Discharge Summary New Discharge Prescriptions: New Atropine Ophth Soln 1% 5Ml [Isopto Atropine 1% 5Ml] 2 drops PO Q4HR PRN #1 bottle PRN Reason: Secretions LORazepam ORAL CONC [Ativan Intensol] 2 mg PO Q4HR PRN #30 ml PRN Reason: Anxiety MORPHINE ORAL BINU CONC 20mg/mL [Roxanol Oral Soln Conc 20MG/ML] 5 mg PO Q4H PRN #30 ml PRN Reason: Pain Acetaminophen Suppository [Tylenol Suppository] 650 mg RECTAL Q4HR PRN supp PRN Reason: Fever And/Or Mild Pain Discontinued Insulin Glargine [Lantus] 36 unit SQ HS Amitriptyline HCl [Elavil] 100 mg PO HS Cholecalciferol [Vitamin D3] 1,000 unit PO HS Atorvastatin [Lipitor] 10 mg PO HS Enoxaparin [Lovenox] 40 mg SQ DAILY Famotidine [Pepcid] 20 mg PO DAILY Levothyroxine Sodium [Synthroid] 25 mcg PO DAILY Sodium Bicarbonate Tab 650 mg PO BID Venlafaxine HCl ER [Effexor Xr] 37.5 mg PO DAILY Gabapentin [Neurontin] 200 mg PO Q8H Discharge Medication List Acetaminophen Suppository [Tylenol Suppository] 650 mg RECTAL Q4HR PRN supp [Rx] Atropine Ophth Soln 1% 5Ml [Isopto Atropine 1% 5Ml] 2 drops PO Q4HR PRN #1 bottle 01/27/18 [Rx] LORazepam ORAL CONC [Ativan Intensol] 2 mg PO Q4HR PRN #30 ml 01/27/18 [Rx] MORPHINE ORAL BINU CONC 20mg/mL [Roxanol Oral Soln Conc 20MG/ML] 5 mg PO Q4H PRN #30 ml 01/27/18 [Rx] Follow up Appointment(s)/Referral(s): Philipp Montelongo MD [Primary Care Provider] - As Needed () Patient Instructions/Handouts: Hospice (DC)
== END 2018-01-27 15:58 | disposition hospice, home (50) | DRG 389 ==
LOC: 3SCARD 14:46
PROVIDERS: ADMIT Internal Medicine; ATTEND Internal Medicine
DX: K56.600 Partial intestinal obstruction, unspecified as to cause (principal); I82.401 Acute embolism and thrombosis of unspecified deep veins of right lower extremity; E11.9 Type 2 diabetes mellitus without complications; E78.5 Hyperlipidemia, unspecified; G62.9 Polyneuropathy, unspecified; M47.816 Spondylosis without myelopathy or radiculopathy, lumbar region; Z51.5 Encounter for palliative care; Z85.51 Personal history of malignant neoplasm of bladder; Z86.73 Personal history of transient ischemic attack (TIA), and cerebral infarction without residual deficits